=== PATIENT | male | born 1955 | race Caucasian/White ===

== ENCOUNTER 2022-10-03 16:13 | Inpatient (IN) ==
[2022-10-03 16:58] LABS: POC Calcium, Ionized 1.13 (1.16-1.32); POC Creatinine 2.8 (0.6-1.2); POC Potassium 2.3 (3.3-5.1)
[2022-10-03] MEDS ORDERED: 0.9 % SODIUM CHLORIDE 1,000 ML IV ONE (17:21)
[2022-10-03] MEDS ORDERED: morphine 4 MG/ML VIAL IV ONE (17:21)
[2022-10-03] MEDS ORDERED: ONDANSETRON 4 MG/2 ML VIAL IV ONE (17:21)
[2022-10-03 17:41] LABS: Basophils # (Auto) 0.01 K/mcL (0.00-0.30); Basophils % (Auto) 0.1 % (0.0-2.0); Eosinophils # (Auto) 0.03 K/mcL (0.00-0.70); Eosinophils % (Auto) 0.4 % (0.0-7.0); Hematocrit 34.7 % (40.1-51.0); Hemoglobin 11.4 g/dL (13.7-17.5); Lymphocytes # (Auto) 0.73 K/mcL (1.50-4.80); Lymphocytes % (Auto) 9.6 % (15.5-49.0); Mean Cell Volume 74.1 fL (80.0-100.0); Mean Corpuscular HGB Conc 32.9 g/dL (31.0-36.0); Monocytes # (Auto) 0.38 K/mcL (0.10-0.90); Neutrophils % (Auto) 84.4 % (38.0-78.0); Platelet Count 130 K/mcL (140-440); RBC 4.68 M/mcL (4.63-6.08); Red Cell Distribution Width 14.7 % (11.5-14.5); WBC 7.6 K/mcL (4.5-11.0)
[2022-10-03 17:55] LABS: ALT/SGPT 16 U/L (<40); AST/SGOT 15 U/L (<40); Albumin 3.6 gm/dL (3.2-5.2); Alkaline Phosphatase 150 U/L (39-117); Bilirubin,Direct < 0.2 mg/dL (0-0.3); Bilirubin,Total 0.5 mg/dL (0.1-1.0)
--- NOTE | 2022-10-03 19:11 | Internal Med History&Physical ---
HPI History of Present Illness Patient information: Note initiated : 10/03/22 at 7:09 pm Service Date, if different from initiated Date: [] Patient: Armen Edmonds a 67 y/o M admitted on for catheter flush. Chief Complaint: [abdominal pain, hematuria, oligouria] Chief complaint: abdominal pain, hematuria, oligouria History of present illness: Mr. Edmonds is a 67 year old M history of type 2 diabetes mellitus, CAD, BPH st atus post TURP by urologist Dr. Box a week ago on September 24, 2022, presenting with abdominal pain, hematuria, oligouria since his procedure. The abdominal/suprapubic abdominal pain was severe. He would only pee but since the procedures. Yesterday he called Dr. Box about his symptoms and was prompted to came to our ED for further evaluations. A bladder scan performed in the ED showing over 600 cc of fluid in his bladder so a Jacob catheter was inserted. Bloody urine was drained but patient had minimal urine output since then. Currently patient denies having any more abdominal pain. He denies having chest pain or palpitations. He denies any shortness of breath. He denies any muscle pain, spasm, or muscle weakness. He denies having confusion or lethargy. He denies having any GI upset such as nausea or vomiting. Labs significant for hyponatremia and hypokalemia with serum sodium and potassium level 121 and 2.3, respectively. Serum creatinine level 2.8. Blood glucose 270. Urine culture collected from October 02 day of ED presentation showing growth of Enterococcus species. Admission request is called for acute kidney injury, hyponatremia, hyperkalemia, and urinary tract infections. Constitutional Constitutional: Absent chills, excessive sweating, fatigue, fever(s) or weakness EENT Eyes: Absent blurry vision, change in vision, loss of vision or other visual disturbances Ears: Absent decreased hearing or tinnitus Nose, mouth and throat: Absent abnormal hearing, dry mouth, headache(s), nasal congestion or sore throat Cardiovascular Cardiovascular: Absent chest pain, chest pain at rest, edema, irregular heart rhythm or palpatations Respiratory Respiratory: Absent cough, dyspnea or wheezing Gastrointestinal Gastrointestinal: Present abdominal pain; Absent constipation, diarrhea, nausea or vomiting Genitourinary Genitourinary: as per HPI, difficulty urinating and hematuria Musculoskeletal Musculoskeletal: Absent back pain, deformity, limited range of motion, muscle cramps, muscle weakness or numbness Integumentary Integumentary: Absent lesions, rash or wounds Neurological Neurological: Absent focal weakness, headache(s) or numbness Psychiatric Psychiatric: Absent anxiety, depression or hallucinations PFSH PFSH All Active Problems (Updated 10/03/22 @ 19:23 by Neo Ryder MD) Hypochromic microcytic anemia (Acute) UTI (urinary tract infection) (Acute) Obstructive nephropathy (Acute) Hyponatremia (Acute) Hypokalemia (Acute) Acid reflux (Chronic) Arthritis (Chronic) Asthma (Chronic) Hypertension, essential (Chronic) Joint pain (Chronic) Osteoarthrosis, shoulder region (Chronic) Tinea cruris (Chronic) Allergic dermatitis (Chronic) Sebaceous cyst (Chronic) Edema extremities (Chronic) Gastroenteritis and colitis, viral (Chronic) Erectile dysfunction (Chronic) Nonalcoholic fatty liver disease without nonalcoholic steatohepatitis (GARBER) (Chronic) Hypertriglyceridemia (Chronic) Left elbow pain (Chronic) Swelling of left elbow (Chronic) Irritable bowel syndrome with diarrhea (Chronic) Dislocation of right shoulder joint (Chronic) Shoulder dislocation, recurrent (Chronic) Bursitis of right elbow (Chronic) Low back pain (Chronic) Pneumonia due to 2019-nCoV (Chronic) Anemia (Chronic) Hyperproteinemia (Chronic) Acute on chronic diastolic (congestive) heart failure (Chronic) Multiple myeloma (Chronic) Type 2 diabetes mellitus (Chronic) Impotence (Chronic) 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) Primary erectile dysfunction (Chronic) Allergic contact dermatitis (Chronic) Osteoarthritis (Chronic) Pain in elbow (Chronic) Swelling of upper extremity (Chronic) Edema of extremity (Chronic) Dislocation of shoulder joint (Chronic) Complete tear, knee, anterior cruciate ligament (Chronic) Rupture of anterior cruciate ligament (Chronic) Pulmonary arterial hypertension (Chronic) Coronary arteriosclerosis (Chronic) Dependence on continuous supplemental oxygen (Chronic) Syncope (Chronic) Paroxysmal supraventricular tachycardia (Chronic) Full thickness rotator cuff tear (Chronic) Unstable angina pectoris due to coronary arteriosclerosis (Chronic) Pneumonia due to COVID-19 virus (Chronic) Lower extremity edema (Chronic) Acute respiratory failure (Chronic) Hypoxia (Chronic) Rash (Acute) Leucopenia (Chronic) Neutropenia (Chronic) Epistaxis (Chronic) Hypersomnia (Acute) Snoring (Acute) Cor pulmonale, chronic (Acute) Eugene hematuria (Chronic) Acute hemorrhoid (Chronic) Urinary frequency (Chronic) Urinary urgency (Chronic) Slow urinary stream (Chronic) BPH (benign prostatic hyperplasia) (Chronic) S/P TURP (status post transurethral resection of prostate) (Acute) Bladder outflow obstruction (Acute) Medical History Acid reflux ACL injury tear Right knee ACL tear Acute bronchitis Acute hemorrhoid Acute on chronic diastolic (congestive) heart failure Acute respiratory failure Allergic contact dermatitis Allergic dermatitis Anemia Arthritis 06/08/14 Dr. Dorsey; Left 2001 Asthma continue same meds, inhalers, use asthma action plan for escalation of sx Bronchitis Burn Bursitis of right elbow Chronic combined systolic and diastolic heart failure Complete tear, knee, anterior cruciate ligament Cor pulmonale, chronic Coronary arteriosclerosis Dependence on continuous supplemental oxygen Dislocation of shoulder joint Edema of extremity Epistaxis Erectile dysfunction Fractured bone Patient stated he had too many fractures to list Eugene hematuria Full thickness rotator cuff tear Gastroenteritis and colitis, viral Hyperproteinemia Hypersomnia Hypertension, essential Hypertriglyceridemia Hypoxia Impotence Irritable bowel syndrome with diarrhea Joint pain 2008-patient has had very painful joints for the last 5 years Leucopenia Low back pain Lower extremity edema Multiple myeloma Neutropenia Nonalcoholic fatty liver disease without nonalcoholic steatohepatitis (GARBER) Osteoarthritis Osteoarthrosis, shoulder region 06/08/2014 Dr. Dorsey' localized secondary involving shoulder region, right Pain in elbow Paroxysmal supraventricular tachycardia Pneumonia due to COVID-19 virus Primary erectile dysfunction Pulmonary arterial hypertension Rash Rotator cuff rupture, complete 06/08/14 Dr. dorsey; Left 1997, Right 2000, Re-tear 2005 and underwent a pig submucosal graft repair for an irreparable rotator cuff tear Rupture of anterior cruciate ligament Sebaceous cyst Shoulder dislocation, recurrent Snoring Swelling of upper extremity Syncope Tinea cruris stop antibiotic creams, hc, use only baking soda for skin cleanser, start lamisil tabs x 6 weeks Type 2 diabetes mellitus Unstable angina pectoris due to coronary arteriosclerosis Surgical History History of biopsy (~11/22/21) myocardial History of carpal tunnel surgery of left wrist 2001- Dr. Dorsey; Left proximal row carpectomy History of decompression of median nerve History of left heart catheterization History of right heart catheterization History of surgical procedure Fracture repair- patient stated that he had too many fractures to list Hx of arthroplasty (06/08/14) Right reverse total shoulder arthroplasty done by Dr. Dorsey Hx of colonoscopy 10/2012 Hx of knee surgery Right knee surgery Hx of reconstruction of anterior cruciate ligament tear 1998 Right Hx of shoulder surgery (08/09/14) Patient had right and left shoulder surgeries. 08/09/14; [employer] reverse total shoulder glenosphere revision, 4mm offset x 42 mm glenosphere, exchange of one purple screw for an orange screw in the superior hole of the baseplate, 42 mm x 0 mm humeral bearing- Done by Dr. Dorsey Family History mother Essential hypertension Melanoma Sister Asthma Social History marital status: occupational status: retired physical activity: none smoking status: Never smoker alcohol intake frequency: a few times a week substance use type: does not use fire extinguisher in home: Yes carbon monox detector in home: Yes MEDS/ALLERGIES Home Medications and Allergies Home Medications Medication Instructions Recorded Confirmed Type acyclovir 400 mg tablet 400 mg PO BID 08/13/22 09/30/22 History ambrisentan 10 mg tablet 10 mg PO QDAY 08/13/22 09/30/22 History dexamethasone 4 mg tablet 20 mg PO .Q Month 08/13/22 09/30/22 History dicyclomine 10 mg capsule 10 mg PO TID PRN Pain 08/13/22 09/30/22 History empagliflozin 10 mg tablet 10 mg PO QDAY 08/13/22 09/30/22 History (Jardiance) furosemide 40 mg tablet 40 mg PO BID 08/13/22 09/30/22 History oxybutynin chloride 10 mg 10 mg PO QDAY 08/13/22 09/30/22 History tablet,extended release 24 hr sildenafil (pulm.hypertension) 20 20 mg PO TID 08/13/22 09/30/22 History mg tablet hydrocodone 7.5 mg-acetaminophen 2 tab PO DAILY pain 09/18/22 09/30/22 History 325 mg tablet potassium chloride 20 mEq 20 meq PO QDAY 09/18/22 09/30/22 History tablet,extended release tramadol 50 mg tablet 50 mg PO Q8H PRN pain #10 tabs 09/25/22 09/30/22 Rx Allergies Allergy/AdvReac Type Severity Reaction Status Date / Time promethazine [From PHENERGAN] Allergy Unknown PSYCHOTIC Verified 10/03/22 16:19 EPISODE EXAM Constitutional Vitals: Temp Pulse Resp BP Pulse Ox O2 Del Method 36.4 C 74 16 120/63 95 Room Air 10/03/22 16:15 10/03/22 18:28 10/03/22 16:15 10/03/22 18:28 10/03/22 18:28 10/03/22 16:15 General appearance: cooperative and no acute distress Head Head exam: Present atraumatic and normocephalic Eye Eye exam: Present EOMI and PERRL ENT ENT exam: Present mucous membranes moist, normal exam and normal external ear exam Neck Neck exam: Present normal inspection; Absent lymphadenopathy, tenderness or thyromegaly Respiratory Respiratory exam: Absent accessory muscle use, respiratory distress or wheezes Cardiovascular Cardiovascular exam: Present normal rate and rhythm; Absent JVD GI/Abdominal GI/Abdominal exam: Present normal bowel sounds and soft; Absent organomegaly or tenderness Rectal Rectal exam: Present deferred Additional comments: Jacob catheter in place with bloody urine in the bag Extremities Exam Extremities exam: Present full ROM, normal capillary refill and normal inspection; Absent tenderness Back Exam Back exam: Absent CVA tenderness (L), CVA tenderness (R), paraspinal tenderness or vertebral tenderness Neurological Exam Neurological exam: Present alert, CN II-XII intact and oriented X3; Absent motor sensory deficit Psychiatric Psychiatric exam: Present normal affect and normal mood; Absent anxious or depressed Skin Skin exam: Present dry and intact DATA Data Completed and Pending Labs: Labs from last 24 hours 10/03/22 10/03/22 10/03/22 17:00 17:00 16:49 WBC 7.6 RBC 4.68 Hgb 11.4 L Hct 34.7 L POC Hct 36.0 L MCV 74.1 L MCH 24.4 L MCHC 32.9 RDW 14.7 H Plt Count 130 L MPV ---- Immature Gran % (Auto) 0.5 Neut % (Auto) 84.4 H Lymph % (Auto) 9.6 L [place] % (Auto) 5.0 Eos % (Auto) 0.4 Baso % (Auto) 0.1 Lymph # (Auto) 0.73 L [place] # (Auto) 0.38 Eos # (Auto) 0.03 Baso # (Auto) 0.01 Immature Gran # 0.04 Absolute Neutrophils 6.40 POC Sodium 121 L POC Potassium 2.3 L* POC Chloride 78 L POC Total CO2 31.0 H POC BUN 69 H POC Creatinine 2.8 H POC Glucose 270 H POC WB Ioniz Calcium 1.13 L Total Bilirubin 0.5 Direct Bilirubin < 0.2 AST 15 ALT 16 Alkaline Phosphatase 150 H Total Protein 6.6 Albumin 3.6 Globulin 3.0 A/P Assessment and plan (1) Type 2 diabetes mellitus: Status: Chronic (2) BPH (benign prostatic hyperplasia): Status: Chronic (3) S/P TURP (status post transurethral resection of prostate): Status: Acute (4) Hypokalemia: Status: Acute (5) Hyponatremia: Status: Acute (6) Obstructive nephropathy: Status: Acute (7) UTI (urinary tract infection): Status: Acute (8) Hypochromic microcytic anemia: Status: Acute Narrative A/P Narrative: Assessment and Plans: 1. Acute kidney injury secondary to obstructive nephropathy: Inpatient med surg Keep Jacob catheter in place CT abdomen pelvis w/o Avoid nephrotoxic agents s/p IV fluid bolus given in the ED, to be followed by NS@75cc/hr CMP in the morning to trend kidney functions; if kidney functions does not improve with hydration and resolution of the urinary obstruction, will consult nephrology for potential hemodialysis 2. Hyponatremia: s/p IV fluid bolus given in the ED, to be followed by NS@75cc/hr BMP q6hr to trend serum sodium level Goal of correction 8-10 point over the first 24 hours to avoid overcorrection and associated GRADES 1 THROUGH 6 TEACHER consequences such as Central Pontine Myelinolysis 3. Hypokalemia: K rider 20mEq IV once now, then KCL 20mEq PO BID BMP q6hr to trend serum potassium level Also check serum Mg level and replace if needed 4. T2DM: HgA1c Hold Metformin or any other oral hypoglycemics Insulin Lispro SSI AC HS Accu Check AC HS Hypoglycemia protocol Diabetic diet 5. h/o BPH s/p TURP: See #1 6. Urinary tract infection: Serial lactic acid Procalcitonin level Blood culture Urine culture: enterococcus spc. cbc w/ auto diff in the morning to trend WBC s/p IV fluid bolus given in the ED, to be followed by NS@75cc/hr Rocephin GI ppx: not currently indicated DVT ppx: SCDs Code status: Full Prognosis: guarded Disposition: inpatient med surg tele Time Spent With Patient Time: Total time spent is greater than 50% in coordination of care (as documented) at patient's floor/unit and/or counseling patient: Initial: Total time with patient: 55 - 74 minutes
--- NOTE | 2022-10-03 19:55 | Emergency Department Note ---
Male Urogenital HPI General Chief complaint: Urogenital-Male Stated complaint: catheter flush Time Seen by Provider: 10/03/22 16:24 Source: patient Mode of arrival: EMS Limitations: no limitations History of Present Illness HPI Narrative: Narrative: This is a pleasant 67-year-old male who presents emergency department with complaints of unable to urinate. He had a having a TURP done by Dr. Box and ended up not being able to urinate came back to the emergency department last night had about 600 cc of urine in his bladder after it being irrigated the Jacob catheter was placed. The patient reports that he has not had much any urine going to the bag since last night at midnight. He reports he has having p ain of the urethra of his penis but is not having any abdominal pain but just a distention and uncomfortableness. He has not been having any fevers or chills nausea or vomiting chest pain shortness of breath diarrhea. He reports that he drinks plenty of water a day and drinks at least 64 ounces of water daily. He is concerned since he has not able to urinate. Related Data Home Medications Medication Instructions Recorded Confirmed acyclovir 400 mg tablet 400 mg PO BID 08/13/22 09/30/22 ambrisentan 10 mg tablet 10 mg PO QDAY 08/13/22 09/30/22 dexamethasone 4 mg tablet 20 mg PO .Q Month 08/13/22 09/30/22 dicyclomine 10 mg capsule 10 mg PO TID PRN Pain 08/13/22 09/30/22 empagliflozin 10 mg tablet 10 mg PO QDAY 08/13/22 09/30/22 (Jardiance) furosemide 40 mg tablet 40 mg PO BID 08/13/22 09/30/22 oxybutynin chloride 10 mg 10 mg PO QDAY 08/13/22 09/30/22 tablet,extended release 24 hr sildenafil (pulm.hypertension) 20 20 mg PO TID 08/13/22 09/30/22 mg tablet hydrocodone 7.5 mg-acetaminophen 2 tab PO DAILY pain 09/18/22 09/30/22 325 mg tablet potassium chloride 20 mEq 20 meq PO QDAY 09/18/22 09/30/22 tablet,extended release Previous Rx's Medication Instructions Recorded tramadol 50 mg tablet 50 mg PO Q8H PRN pain #10 tabs 09/25/22 Allergies Allergy/AdvReac Type Severity Reaction Status Date / Time promethazine [From PHENERGAN] Allergy Unknown PSYCHOTIC Verified 10/03/22 16:19 EPISODE Review of Systems ROS ROS Narrative: Narrative: All systems ED: reviewed and negative except as stated. [facility] Narrative Patient History Narrative: Narrative: Medical/Surgical/Family History All Active Problems (Updated 10/03/22 @ 22:13 by Rl De Anda PA-C) AFSHIN (acute kidney injury) (Acute) Hypochromic microcytic anemia (Acute) UTI (urinary tract infection) (Acute) Obstructive nephropathy (Acute) Hyponatremia (Acute) Hypokalemia (Acute) Acid reflux (Chronic) Arthritis (Chronic) Asthma (Chronic) Hypertension, essential (Chronic) Joint pain (Chronic) Osteoarthrosis, shoulder region (Chronic) Tinea cruris (Chronic) Allergic dermatitis (Chronic) Sebaceous cyst (Chronic) Edema extremities (Chronic) Gastroenteritis and colitis, viral (Chronic) Erectile dysfunction (Chronic) Nonalcoholic fatty liver disease without nonalcoholic steatohepatitis (GARBER) (Chronic) Hypertriglyceridemia (Chronic) Left elbow pain (Chronic) Swelling of left elbow (Chronic) Irritable bowel syndrome with diarrhea (Chronic) Dislocation of right shoulder joint (Chronic) Shoulder dislocation, recurrent (Chronic) Bursitis of right elbow (Chronic) Low back pain (Chronic) Pneumonia due to 2019-nCoV (Chronic) Anemia (Chronic) Hyperproteinemia (Chronic) Acute on chronic diastolic (congestive) heart failure (Chronic) Multiple myeloma (Chronic) Type 2 diabetes mellitus (Chronic) Impotence (Chronic) 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) Primary erectile dysfunction (Chronic) Allergic contact dermatitis (Chronic) Osteoarthritis (Chronic) Pain in elbow (Chronic) Swelling of upper extremity (Chronic) Edema of extremity (Chronic) Dislocation of shoulder joint (Chronic) Complete tear, knee, anterior cruciate ligament (Chronic) Rupture of anterior cruciate ligament (Chronic) Pulmonary arterial hypertension (Chronic) Coronary arteriosclerosis (Chronic) Dependence on continuous supplemental oxygen (Chronic) Syncope (Chronic) Paroxysmal supraventricular tachycardia (Chronic) Full thickness rotator cuff tear (Chronic) Unstable angina pectoris due to coronary arteriosclerosis (Chronic) Pneumonia due to COVID-19 virus (Chronic) Lower extremity edema (Chronic) Acute respiratory failure (Chronic) Hypoxia (Chronic) Rash (Acute) Leucopenia (Chronic) Neutropenia (Chronic) Epistaxis (Chronic) Hypersomnia (Acute) Snoring (Acute) Cor pulmonale, chronic (Acute) Eugene hematuria (Chronic) Acute hemorrhoid (Chronic) Urinary frequency (Chronic) Urinary urgency (Chronic) Slow urinary stream (Chronic) BPH (benign prostatic hyperplasia) (Chronic) S/P TURP (status post transurethral resection of prostate) (Acute) Bladder outflow obstruction (Acute) Medical History Acid reflux ACL injury tear Right knee ACL tear Acute bronchitis Acute hemorrhoid Acute on chronic diastolic (congestive) heart failure Acute respiratory failure Allergic contact dermatitis Allergic dermatitis Anemia Arthritis 06/08/14 Dr. Dorsey; Left 2001 Asthma continue same meds, inhalers, use asthma action plan for escalation of sx Bronchitis Burn Bursitis of right elbow Chronic combined systolic and diastolic heart failure Complete tear, knee, anterior cruciate ligament Cor pulmonale, chronic Coronary arteriosclerosis Dependence on continuous supplemental oxygen Dislocation of shoulder joint Edema of extremity Epistaxis Erectile dysfunction Fractured bone Patient stated he had too many fractures to list Eugene hematuria Full thickness rotator cuff tear Gastroenteritis and colitis, viral Hyperproteinemia Hypersomnia Hypertension, essential Hypertriglyceridemia Hypoxia Impotence Irritable bowel syndrome with diarrhea Joint pain 2008-patient has had very painful joints for the last 5 years Leucopenia Low back pain Lower extremity edema Multiple myeloma Neutropenia Nonalcoholic fatty liver disease without nonalcoholic steatohepatitis (GARBER) Osteoarthritis Osteoarthrosis, shoulder region 06/08/2014 Dr. Dorsey' localized secondary involving shoulder region, right Pain in elbow Paroxysmal supraventricular tachycardia Pneumonia due to COVID-19 virus Primary erectile dysfunction Pulmonary arterial hypertension Rash Rotator cuff rupture, complete 06/08/14 Dr. dorsey; Left 1997, Right 2000, Re-tear 2005 and underwent a pig submucosal graft repair for an irreparable rotator cuff tear Rupture of anterior cruciate ligament Sebaceous cyst Shoulder dislocation, recurrent Snoring Swelling of upper extremity Syncope Tinea cruris stop antibiotic creams, hc, use only baking soda for skin cleanser, start lamisil tabs x 6 weeks Type 2 diabetes mellitus Unstable angina pectoris due to coronary arteriosclerosis Surgical History History of biopsy (~11/22/21) myocardial History of carpal tunnel surgery of left wrist 2001- Dr. Dorsey; Left proximal row carpectomy History of decompression of median nerve History of left heart catheterization History of right heart catheterization History of surgical procedure Fracture repair- patient stated that he had too many fractures to list Hx of arthroplasty (06/08/14) Right reverse total shoulder arthroplasty done by Dr. Dorsey Hx of colonoscopy 10/2012 Hx of knee surgery Right knee surgery Hx of reconstruction of anterior cruciate ligament tear 1998 Right Hx of shoulder surgery (08/09/14) Patient had right and left shoulder surgeries. 08/09/14; [employer] reverse total shoulder glenosphere revision, 4mm offset x 42 mm glenosphere, exchange of one purple screw for an orange screw in the superior hole of the baseplate, 42 mm x 0 mm humeral bearing- Done by Dr. Dorsey Family History mother Essential hypertension Melanoma Sister Asthma Social History Smoking Status: Never smoker Alcohol Intake Frequency: a few times a week Substance Use: does not use Exam Narrative Narrative: Narrative: General: Alert, in no acute distress Head: No trauma normocephalic Eyes: PERRLA, EOMs intact no scleral icterus or scleral injection Neck: Full range of motion, no midline tenderness ENT: Moist mucous membranes, uvula is midline. No sign of peritonsillar abscess or Brandyn's angina. Cardiovascular: Regular rate and rhythm no murmur Respiratory: Clear to auscultation bilaterally. No rhonchi rales or wheezes, no respiratory distress Abdomen pelvis: Abdomen is soft and nontender to palpation. There is no guarding no rebound tenderness. Negative Pierre sign. No tenderness over McBurney's point. : The genitals are unremarkable. There is no abnormality of the penis on external exam. Back: Negative CVA tenderness bilaterally. Neuro: Patient is alert and oriented x3 Psych: Normal affect, normal mood Skin: Warm, no rash, normal color General Limitations: no limitations Course Vital Signs Vital signs: Vital Signs Temperature 97.5 F 10/03/22 16:15 Pulse Rate 65 10/03/22 16:15 Respiratory Rate 16 10/03/22 16:15 Blood Pressure 112/63 10/03/22 16:15 Pulse Oximetry (%) 96 10/03/22 16:15 Oxygen Delivery Method Room Air 10/03/22 16:15 Temperature 97.5 F 10/03/22 16:15 Pulse Rate 74 10/03/22 19:14 Respiratory Rate 16 10/03/22 16:15 Blood Pressure 120/67 10/03/22 19:14 Pulse Oximetry (%) 92 10/03/22 19:14 Oxygen Delivery Method Room Air 10/03/22 16:15 MDM MDM Narrative Medical decision making narrative: Narrative: Differential diagnosis: Acute kidney injury, bladder outlet obstruction secondary to clot burden Independent lab ordered and reviewed by me: Patient's labs are reviewed. He does appear to have an AFSHIN. There is only about 120 cc of urine within the bladder. I have ordered 2 L of normal saline. I spoke with Pui who agreed to admit the patient for further evaluation and treatment for his AFSHIN. Lab Data 10/03/22 17:00 Labs: Lab Results 10/03/22 10/03/22 10/03/22 Range/Units 16:49 17:00 17:00 WBC 7.6 (4.5-11.0) K/mcL RBC 4.68 (4.63-6.08) M/mcL Hgb 11.4 L (13.7-17.5) g/dL Hct 34.7 L (40.1-51.0) % POC Hct 36.0 L (41-55) MCV 74.1 L (80.0-100.0) fL MCH 24.4 L (26.0-34.0) pg MCHC 32.9 (31.0-36.0) g/dL RDW 14.7 H (11.5-14.5) % Plt Count 130 L (140-440) K/mcL MPV ---- (8.8-12.5) fL Immature Gran % (Auto) 0.5 (0.0-0.5) % Neut % (Auto) 84.4 H (38.0-78.0) % Lymph % (Auto) 9.6 L (15.5-49.0) % [place] % (Auto) 5.0 (1.0-12.0) % Eos % (Auto) 0.4 (0.0-7.0) % Baso % (Auto) 0.1 (0.0-2.0) % Lymph # (Auto) 0.73 L (1.50-4.80) K/mcL [place] # (Auto) 0.38 (0.10-0.90) K/mcL Eos # (Auto) 0.03 (0.00-0.70) K/mcL Baso # (Auto) 0.01 (0.00-0.30) K/mcL Immature Gran # 0.04 (0.00-0.05) K/mcl Absolute Neutrophils 6.40 (1.80-8.00) K/mcL POC Sodium 121 L (133-145) POC Potassium 2.3 L* (3.3-5.1) POC Chloride 78 L (96-108) POC Total CO2 31.0 H (22-30) POC BUN 69 H (6-20) POC Creatinine 2.8 H (0.6-1.2) POC Glucose 270 H (70-105) POC WB Ioniz Calcium 1.13 L (1.16-1.32) Total Bilirubin 0.5 (0.1-1.0) mg/dL Direct Bilirubin < 0.2 (0-0.3) mg/dL AST 15 (<40) U/L ALT 16 (<40) U/L Alkaline Phosphatase 150 H (39-117) U/L Total Protein 6.6 (5.9-8.4) gm/dL Albumin 3.6 (3.2-5.2) gm/dL Globulin 3.0 (2.2-3.7) gm/dL Discharge Plan Patient/Caregiver Discharge Instructions Pt seen by HOUSEPERSON/PA only: Yes Clinical Impression: AFSHIN (acute kidney injury) Activity: increase activity as tolerated Instructions: Acute Kidney Injury (DC) Patient Disposition: Xfer As Inpt ([facility]) Follow up with: Richie Cunningham MD [Primary Care Provider] - Prescriptions: No Action hydrocodone-acetaminophen 7.5-325 mg tablet 2 tab PO DAILY potassium chloride 20 mEq tablet extended release 20 meq PO QDAY Rx Instructions: ONLY TAKES 20 MEQ tramadol 50 mg tablet 50 mg PO Q8H PRN (Reason: pain) Qty: 10 0RF furosemide 40 mg tablet 40 mg PO BID dicyclomine 10 mg capsule 10 mg PO TID PRN (Reason: Pain) sildenafil (pulm.hypertension) 20 mg tablet 20 mg PO TID acyclovir 400 mg tablet 400 mg PO BID ambrisentan 10 mg tablet 10 mg PO QDAY Jardiance 10 mg tablet 10 mg PO QDAY oxybutynin chloride 10 mg tablet extended release 24hr 10 mg PO QDAY dexamethasone 4 mg tablet 20 mg PO .Q Month Rx Instructions: ONLY TAKES WHEN HE TAKES HIS CANCER TREATMENT
[2022-10-03 21:44] LABS: Appearance,Urine CLEAR (Clear); Bilirubin,Urine NEGATIVE (Negative); Color,Urine LT. RED; Culture Indicated,Urine yes; Glucose,Urine (UA) 250 mg/dL (Negative); Ketones,Urine NEGATIVE (Negative); Leukocyte Esterase,Urine TRACE /uL (Negative); Nitrate,Urine NEGATIVE (Negative); Protein,Urine 100 mg/dL (Negative); Urine Blood LARGE ery/mcL (Negative); Urine RBC > 182 /hpf (0-1); Urine Squamous Epithelial Cell 0 /hpf (0-4); Urine WBC 12 /hpf (0-4); Urobilinogen,Urine Normal
[2022-10-03] MEDS ORDERED: ONDANSETRON 4 MG/2 ML VIAL IV PRN (22:55)
[2022-10-03] MEDS ORDERED: POTASSIUM CHLORIDE 20 MEQ in DEXTROSE 5% IN WATER 250 ML IV ONE (22:55)
[2022-10-03] MEDS ORDERED: DEXTROSE 31 GM ORAL.SUSP PO PRN (22:55)
[2022-10-03] MEDS ORDERED: ACETAMINOPHEN 325 MG TABLET PO PRN (22:55)
[2022-10-03] MEDS ORDERED: IPRATROPIUM/ALBUTEROL 3 ML AMPUL.NEB NEB PRN (22:55)
[2022-10-03] MEDS ORDERED: cefTRIAXone 1 GM in DEXTROSE 5% IN WATER 50 ML IV SCH (22:55)
[2022-10-03] MEDS ORDERED: traZODone HCL 50 MG TABLET PO PRN (22:55)
[2022-10-03] MEDS ORDERED: DEXTROSE 50% 50 ML VIAL IV PRN (22:55)
[2022-10-03] MEDS: INSULIN LISPRO 1 UNIT/0.01 ML UNIT SQ SCH (23:00)
[2022-10-03] MEDS: 0.9 % SODIUM CHLORIDE 1,000 ML IV SCH (23:00)
[2022-10-03] MEDS ORDERED: INSULIN LISPRO 1 UNIT/0.01 ML UNIT SQ ONE (23:24)
[2022-10-03] MEDS ORDERED: POTASSIUM CHLORIDE 20 MEQ/10 ML VIAL IV ONE (23:52)
[2022-10-03] MEDS ORDERED: ceFAZolin 1 GM VIAL ONE (23:52)
[2022-10-04] MEDS ORDERED: ACETAMINOPHEN 325 MG TABLET PO ONE
[2022-10-04] MEDS: 0.9 % SODIUM CHLORIDE 10 ML SYRINGE IV SCH ×4 (04:14→23:45)
[2022-10-04] MEDS: DOCUSATE SODIUM 100 MG CAPSULE PO SCH ×3 (04:14→21:12)
[2022-10-04] MEDS: SENNOSIDES 1 TABLET PO SCH ×2 (04:14→21:12)
[2022-10-04 04:16] LABS: Basophils # (Auto) 0.01 K/mcL (0.00-0.30); Basophils % (Auto) 0.2 % (0.0-2.0); Eosinophils # (Auto) 0.12 K/mcL (0.00-0.70); Eosinophils % (Auto) 2.6 % (0.0-7.0); Hematocrit 31.6 % (40.1-51.0); Hemoglobin 10.3 g/dL (13.7-17.5); Lymphocytes # (Auto) 0.85 K/mcL (1.50-4.80); Lymphocytes % (Auto) 18.3 % (15.5-49.0); Mean Cell Volume 75.6 fL (80.0-100.0); Mean Corpuscular HGB Conc 32.6 g/dL (31.0-36.0); Monocytes # (Auto) 0.33 K/mcL (0.10-0.90); Monocytes % (Auto) 7.1 % (1.0-12.0); Neutrophils % (Auto) 71.4 % (38.0-78.0); Platelet Count 108 K/mcL (140-440); RBC 4.18 M/mcL (4.63-6.08); Red Cell Distribution Width 14.7 % (11.5-14.5); WBC 4.6 K/mcL (4.5-11.0)
[2022-10-04 04:48] LABS: ALT/SGPT 13 U/L (<40); AST/SGOT 13 U/L (<40); Albumin 3.5 gm/dL (3.2-5.2); Albumin/Globulin Ratio 1.3 (1.0-2.3); Alkaline Phosphatase 113 U/L (39-117); Bilirubin,Total 0.3 mg/dL (0.1-1.0); Blood Urea Nitrogen 66 mg/dL (8-23); Carbon Dioxide 34 mmol/L (22-30); Chloride 83 mmol/L (96-108); Globulin 2.6 gm/dL (2.2-3.7); Glomerular Filtration Rate 38; Glucose 166 mg/dL (70-105)
[2022-10-04 05:30] LABS: Estimated Average Glucose(eAG) 154 mg/dL
[2022-10-04] MEDS: morphine 4 MG/ML VIAL IV PRN ×4 (07:27→23:34)
--- NOTE | 2022-10-04 07:48 | Cat Scan Report ---
Three: Acute kidney injury, urinary retention, blood clots in the Jacob catheter TECHNIQUE: Abdomen was imaged without contrast in axial plane at 2.5 mm intervals from above the diaphragm through the symphysis pubis. Sagittal and coronal reformats were created. The radiation exposure was limited using dose reduction technology. FINDINGS: Thin linear opacities are present in both lung bases which may be scar or discoid atelectasis. These are new since 10/26/10. Evaluation of the abdominal organs without contrast is somewhat limited. The liver is normal in size. There is subtle lobulation of the capsule anteriorly. No mass is detected in the liver. There are few small varices anterior to the stomach and liver. Spleen is borderline enlarged and homogeneous. The gallbladder and bile ducts are normal. There is no mass or inflammation in the pancreas. The adrenals are normal and symmetric. There is a complex exophytic cyst located medially in the upper pole of the right kidney. It measures 2.5 x 2.5 cm. It has higher attenuation than water. There are calcifications along the medial border. This has not enlarged since prior CT on 10/26/10 but the calcifications were not present at that time. This had been worked up with an MRI on 03/08/21 and it has not changed. 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 No other lesion is seen in the right kidney. There is a simple cyst medially in the lower pole of the left kidney which measures 1.6 x 1.6 cm. No kidney stone or hydronephrosis are present. The renal cortex is normal in thickness bilaterally. The ureters are decompressed. There is a Jacob catheter in the bladder. The bladder is nearly completely filled with homogeneous clot. There is also some air within the lumen which is related to the catheter insertion. The wall of the bladder is normal thickness and smooth. Prostate and seminal vesicles are normal. Bowel pattern is normal without evidence of inflammation or obstruction. The appendix is normal. No adenopathy or ascites are present. There is mild compression fracture involving the superior endplate of L2. There is an intramedullary lesion in the body of L2 which has mixed density. It has a peripheral sclerotic border and a mottled low attenuation central component. This was not present on 10/26/10. A smaller similar-appearing lesion is present anteriorly at T10 and there is mild depression of the superior endplate of T10. These have evolved since 03/08/21. IMPRESSION: Large amount of clot in the urinary bladder. Underlying tumor cannot be entirely excluded. Stable complex cyst along the medial side of the upper pole the right kidney. Mild collapse of the T10 and L2 vertebra with intramedullary lesions. Intramedullary lesions are nonspecific. There are some components which suggests these may be hemangiomas. However, there was no evidence of a hemangioma in 2010. Metastasis should also be considered. Mild cirrhosis Interpreted and Authenticated by: Hector Pedraza 10/04/22
[2022-10-04] MEDS: INSULIN LISPRO 1 UNIT/0.01 ML UNIT SQ SCH ×4 (07:49→21:14)
[2022-10-04] MEDS: POTASSIUM CHLORIDE 20 MEQ TABLET PO SCH ×2 (08:05→17:33)
--- NOTE | 2022-10-04 08:16 | XRay Report ---
HISTORY: Abdominal swelling, blood in the bladder, Jacob catheter flushed FINDINGS: The Jacob catheter has been removed. The bladder is small. There are couple loops of nonspecific small bowel in the left mid abdomen. The larger measures 2.8 cm in transverse dimension which is within normal limits and the mucosal pattern is normal. Superior to this there is a second loop of small bowel which is smaller in caliber but appears to have thickened mucosal folds. These findings were not seen on yesterday's CT scan. Normal quantity of air and stool is present in the large intestine. Stomach contains a normal amount of gas. IMPRESSION: Nonspecific bowel pattern in the left mid abdomen. There is a suggestion of focal inflammation of the small intestine Interpreted and Authenticated by: Hector Pedraza 10/04/22
[2022-10-04 08:24] LABS: Appearance,Urine HAZY (Clear); Bilirubin,Urine Negative (Negative); Color,Urine RED; Culture Indicated,Urine yes; Glucose,Urine (UA) 50 mg/dL (Negative); Ketones,Urine Negative (Negative); Leukocyte Esterase,Urine 75 /uL (Negative); Nitrate,Urine Negative (Negative); Protein,Urine 100 mg/dL (Negative); Specific Gravity,Urine 1.011 (1.000-1.035); Urine RBC > 182 /hpf (0-1); Urine Squamous Epithelial Cell 0 /hpf (0-4); Urine Transitional Epi Cells 1 /hpf (0-2); Urine WBC 73 /hpf (0-4); Urobilinogen,Urine Negative
[2022-10-04 08:30] LABS: ALT/SGPT 14 U/L (<40); AST/SGOT 13 U/L (<40); Albumin 3.5 gm/dL (3.2-5.2); Albumin/Globulin Ratio 1.3 (1.0-2.3); Alkaline Phosphatase 109 U/L (39-117); Bilirubin,Total 0.3 mg/dL (0.1-1.0); Blood Urea Nitrogen 63 mg/dL (8-23); Carbon Dioxide 33 mmol/L (22-30); Chloride 84 mmol/L (96-108); Globulin 2.6 gm/dL (2.2-3.7); Glomerular Filtration Rate 44; Glucose 120 mg/dL (70-105)
[2022-10-04] MEDS: cefTRIAXone 1 GM VIAL IV SCH (08:53)
[2022-10-04] MEDS ORDERED: POTASSIUM CHLORIDE 40 MEQ in DEXTROSE 5% IN WATER 500 ML IV ONE (09:04)
[2022-10-04] MEDS ORDERED: DICYCLOMINE 20 MG TABLET PO PRN (11:57)
[2022-10-04] MEDS ORDERED: DEXAMETHASONE 4 MG TABLET PO SCH (12:00)
--- NOTE | 2022-10-04 12:09 | Internal Med Progress Note ---
SUBJECTIVE Subjective Patient information: Note initiated : 10/04/22 at 12:03 pm Service Date, if different from initiated Date: [] Patient: Armen Edmonds a 67 y/o M admitted on 10/03/22 for catheter flush. Chief Complaint: [] Interval history: Mr. Edmonds is a 67 year old M history of type 2 diabetes mellitus, CAD, BPH status post TURP by urologist Dr. Box a week ago on September 24, 2022, presenting with abdominal pain, hematuria, oligouria since his procedure. The abdominal/suprapubic abdominal pain was severe. He would only pee but since the procedures. Yesterday he called Dr. Box about his symptoms and was prompted to came to our ED for further evaluations. A bladder scan performed in the ED showing over 600 cc of fluid in his bladder so a Jacob catheter was inserted. Bloody urine was drained but patient had minimal urine output since then. Currently patient denies having any more abdominal pain. He denies having chest pain or palpitations. He denies any shortness of breath. He denies any muscle pain, spasm, or muscle weakness. He denies having confusion or lethargy. He denies having any GI upset such as nausea or vomiting. Labs significant for hyponatremia and hypokalemia with serum sodium and potassium level 121 and 2.3, respectively. Serum creatinine level 2.8. Blood glucose 270. Urine culture collected from October 02 day of ED presentation showing growth of Enterococcus species. Admission request is called for acute kidney injury, hyponatremia, hyperkalemia, and urinary tract infections. 10/04: Patient had 500 cc bloody urine output overnight in and and out of 400 cc bloody urine output approximately 3 hour since the start of the morning shift. Serum sodium improved from 1 21-1 27 while serum potassium deteriorated from 2.3-1.9. Serum creatinine level went down from 2.8-1.6. Urine culture grew Enterococcus species, blood culture no growth to date. CT of the abdomen pelvis showing clots in the bladder, likely blood clots. Patient is feeling good and denies any abdominal pain. K rider 40 M EQ IV once, in addition to p.o. potassium supplement. Continue IV fluid with normal saline at 75 cc/h. BMP every 6. We will keep the Jacob catheter in place for the time being. We will continue Rocephin for Enterococcus urinary tract infections. Constitutional Vitals: Vital Signs Temp Pulse Resp BP Pulse Ox O2 Del Method O2 Flow Rate 36.6 C 68 14 117/66 96 Room Air 2 10/04/22 08:00 10/04/22 08:00 10/04/22 08:00 10/04/22 08:00 10/04/22 08:00 10/04/22 08:00 10/04/22 04:00 Period Temp Pulse Resp BP Sys/Kaur Pulse Ox O2 Del Method O2 Flow Rate Last 24 Hr 36.4 C-36.9 C 30-88 10- 80-141/45-70 87-96 Nasal Cannula-Jesika m Air 2 Intake and Output 10/04/22 10/04/22 10/04/22 03:59 11:59 19:59 Intake Total 550 Output Total 3150 Balance -2600 Weight 74.389 kg Intake & Output: Intake & Output 10/04/22 10/04/22 10/04/22 03:59 11:59 19:59 Intake Total 550 Output Total 3150 Balance -2600 Weight 74.389 kg Intake: IV 310 Potassium Chloride 20 Meq In 260 Dextrose 5% in Water 250 ml @ 130 mls/hr IV ONCE ONE Rx#: [id number] Rocephin 1 gm In Dextrose 5% in 50 Water 50 ml @ 100 mls/hr IV Q24H [facility] Rx#:[id number] Oral 240 Output: Urine Catheter Amount 3150 Other: Meal Breakfast Percent of Meal Consumed 100% Feeding Ability Independent Urine Appearance Hematuria Hematuria 3-way Urethral Hematuria Hematuria Urine Color Dark Red Dark Amanda Medium [place] 3-way Urethral Dark Red Dark Yellow Medium [place] Urine Odor Normal Normal 3-way Urethral Normal Normal Head Head exam: Present atraumatic and normal inspection Eye Eye exam: Present normal appearance ENT ENT exam: Present mucous membranes moist, normal exam and normal external ear exam Neck Neck exam: Present normal inspection Respiratory Respiratory exam: Present normal respiratory exam Cardiovascular Cardiovascular exam: Present normal rate and rhythm GI/Abdominal GI/Abdominal exam: Present normal bowel sounds Additional comments: Jacob catheter in place with bloody urine in the bag Back Exam Back exam: Present normal inspection Neurological Exam Neurological exam: Present alert and oriented X3 Skin Skin exam: Present intact and warm OBJ DATA Labs 10/04/22 03:18 10/04/22 06:01 Labs: Abnormal Lab Results 10/04/22 10/04/22 10/04/22 07:45 06:01 03:18 RBC Hgb Hct POC Hct MCV MCH RDW Plt Count Neut % (Auto) Lymph % (Auto) Lymph # (Auto) VBG Lactic Acid POC Sodium Sodium 127 L 126 L POC Potassium Potassium 1.9 L* 2.3 L* POC Chloride Chloride 84 L 83 L Carbon Dioxide 33 H 34 H POC Total CO2 POC BUN BUN 63 H 66 H Creatinine 1.6 H 1.8 H POC Creatinine Glucose 120 H 166 H POC Glucose Hemoglobin A1c 7.0 H POC WB Ioniz Calcium Alkaline Phosphatase Procalcitonin Urine Appearance Hazy A Urine Protein 100 A Urine Glucose (UA) 50 A Urine Occult Blood Ur Leukocyte Esterase 75 A Urine RBC > 182 H Urine WBC 73 H 10/04/22 10/03/22 10/03/22 03:18 23:45 19:46 RBC 4.18 L Hgb 10.3 L Hct 31.6 L POC Hct MCV 75.6 L MCH 24.6 L RDW 14.7 H Plt Count 108 L Neut % (Auto) Lymph % (Auto) Lymph # (Auto) 0.85 L VBG Lactic Acid 2.1 H POC Sodium Sodium POC Potassium Potassium POC Chloride Chloride Carbon Dioxide POC Total CO2 POC BUN BUN Creatinine POC Creatinine Glucose POC Glucose Hemoglobin A1c POC WB Ioniz Calcium Alkaline Phosphatase Procalcitonin 78.33 H Urine Appearance Urine Protein Urine Glucose (UA) Urine Occult Blood Ur Leukocyte Esterase Urine RBC Urine WBC 10/03/22 10/03/22 10/03/22 19:46 17:00 17:00 RBC Hgb 11.4 L Hct 34.7 L POC Hct MCV 74.1 L MCH 24.4 L RDW 14.7 H Plt Count 130 L Neut % (Auto) 84.4 H Lymph % (Auto) 9.6 L Lymph # (Auto) 0.73 L VBG Lactic Acid POC Sodium Sodium POC Potassium Potassium POC Chloride Chloride Carbon Dioxide POC Total CO2 POC BUN BUN Creatinine POC Creatinine Glucose POC Glucose Hemoglobin A1c POC WB Ioniz Calcium Alkaline Phosphatase 150 H Procalcitonin Urine Appearance Urine Protein 100 A Urine Glucose (UA) 250 A Urine Occult Blood Large A Ur Leukocyte Esterase Trace A Urine RBC > 182 H Urine WBC 12 H 10/03/22 16:49 RBC Hgb Hct POC Hct 36.0 L MCV MCH RDW Plt Count Neut % (Auto) Lymph % (Auto) Lymph # (Auto) VBG Lactic Acid POC Sodium 121 L Sodium POC Potassium 2.3 L* Potassium POC Chloride 78 L Chloride Carbon Dioxide POC Total CO2 31.0 H POC BUN 69 H BUN Creatinine POC Creatinine 2.8 H Glucose POC Glucose 270 H Hemoglobin A1c POC WB Ioniz Calcium 1.13 L Alkaline Phosphatase Procalcitonin Urine Appearance Urine Protein Urine Glucose (UA) Urine Occult Blood Ur Leukocyte Esterase Urine RBC Urine WBC Meds: Medications Acetaminophen (Acetaminophen 325 Mg Tablet) 650 mg PO Q6HP PRN; Protocol PRN Reason: Per Pain Protocol/Fever > 101 Hydrocodone Bitart/Acetaminophen (Hydrocodone/Apap 7.5/325mg Tablet) 2 tab PO DAILYP PRN PRN Reason: Pain Acyclovir (Acyclovir 400 Mg Tablet) 400 mg PO BID [facility]; Protocol Albuterol/Ipratropium (Ipratropium/Albuterol 3 Ml Ampul.Neb) 3 ml NEB Q4HRT PRN PRN Reason: Wheezing Ceftriaxone Sodium (Ceftriaxone 1 Gm Vial) 1 gm IV Q24H [facility] Last Admin: 10/04/22 08:53 Dose: 1 gm Dextrose (Dextrose 50% 50 Ml Vial) 0 ml IV UD PRN PRN Reason: Per Sliding Scale Diagnostic Test (Pha) (Accu-Chek 1 Each Strip) 1 each FS ACHS [facility] Last Admin: 10/04/22 11:44 Dose: 1 each Dicyclomine HCl (Dicyclomine 20 Mg Tablet) 10 mg PO TIDP PRN PRN Reason: BOWEL PAIN Docusate Sodium (Docusate Sodium 100 Mg Capsule) 100 mg PO BID [facility] Last Admin: 10/04/22 08:04 Dose: 100 mg Glucose (Dextrose 31 Gm Oral.Susp) 15 gm PO PRN PRN PRN Reason: Hypoglycemia Sodium Chloride (Sodium Chloride 0.9%) 1,000 mls @ 75 mls/hr IV .[id number] [facility] Last Admin: 10/03/22 23:00 Dose: 75 mls/hr Potassium Chloride 40 meq/ (Dextrose) 520 mls @ 130 mls/hr IV ONCE ONE Stop: 10/04/22 13:03 Last Admin: 10/04/22 10:31 Dose: 130 mls/hr Insulin Human Lispro (Insulin Lispro 1 Unit/0.01 Ml Unit) 0 unit SQ ACHS [facility]; Protocol Last Admin: 10/04/22 11:45 Dose: 3 units Morphine Sulfate (Morphine 4 Mg/Ml Vial) 4 mg IV Q4HP PRN; Protocol PRN Reason: Per Pain Protocol Last Admin: 10/04/22 07:27 Dose: 1 mg Ondansetron HCl (Ondansetron 4 Mg/2 Ml Vial) 4 mg IV Q6HP PRN PRN Reason: Nausea And Vomiting Oxybutynin Chloride (Oxybutynin Chloride 5 Mg Tab.Xl.24h) 10 mg PO QDAY [facility] Empagliflozin [ Jardiance] 10 Mg Tablet 1 dose PO QDAY [facility] Sildenafil (Pulm. Hypertension) 20 Mg Tablet 1 dose PO TID DEJUAN Potassium Chloride (Potassium Chloride 20 Meq Tablet) 20 meq PO BIDCC [facility] Last Admin: 10/04/22 08:05 Dose: 20 meq Senna (Sennosides 1 Tablet) 2 tab PO HS [facility] Last Admin: 10/04/22 04:14 Dose: Not Given Sodium Chloride (0.9 % Sodium Chloride 10 Ml Syringe) 10 ml IV Q8 [facility] Last Admin: 10/04/22 05:29 Dose: Not Given Tramadol HCl (Tramadol 50 Mg Tablet) 50 mg PO Q8HP PRN PRN Reason: Pain Trazodone HCl (Trazodone Hcl 50 Mg Tablet) 25 mg PO HSP PRN PRN Reason: Insomnia A/P Assessment and plan (1) Type 2 diabetes mellitus: Status: Chronic (2) BPH (benign prostatic hyperplasia): Status: Chronic (3) S/P TURP (status post transurethral resection of prostate): Status: Acute (4) Hypokalemia: Status: Acute (5) Hyponatremia: Status: Acute (6) Obstructive nephropathy: Status: Acute (7) UTI (urinary tract infection): Status: Acute (8) Hypochromic microcytic anemia: Status: Acute Narrative A/P Narrative: Assessment and Plans: 1. Acute kidney injury secondary to obstructive nephropathy: Inpatient med surg Keep Jacob catheter in place CT abdomen pelvis w/o showed large amount of clots in the bladder Avoid nephrotoxic agents s/p IV fluid bolus given in the ED, to be followed by NS@75cc/hr Serial BMP to trend kidney functions 2. Hyponatremia: s/p IV fluid bolus given in the ED, to be followed by NS@75cc/hr BMP q6hr to trend serum sodium level Goal of correction 8-10 point over the first 24 hours to avoid overcorrection and associated [employer] consequences such as Central Pontine Myelinolysis 3. Hypokalemia: K rider 40mEq IV once now, then KCL 20mEq PO BID BMP q6hr to trend serum potassium level Also check serum Mg level and replace if needed 4. T2DM: HgA1c 7.0 Jardiance Insulin Lispro SSI AC HS Accu Check AC HS Hypoglycemia protocol Diabetic diet 5. h/o BPH s/p TURP: See #1 6. Urinary tract infection: Serial lactic acid Procalcitonin level Blood culture, no growth to date Urine culture: enterococcus species cbc w/ auto diff in the morning to trend WBC s/p IV fluid bolus given in the ED, to be followed by NS@75cc/hr Rocephin GI ppx: not currently indicated DVT ppx: SCDs Code status: Full Prognosis: guarded Disposition: inpatient med surg tele Time Spent With Patient Time: Total time spent is greater than 50% in coordination of care (as documented) at patient's floor/unit and/or counseling patient: Subsequent: Total time with patient: 35 - 49 minutes QUALITY VTE Deep Vein Thrombosis/Pulmonary Embolism Present on Admission: No
[2022-10-04 13:49] LABS: Blood Urea Nitrogen 52 mg/dL (8-23); Calcium 9.1 mg/dL (8.6-10.4); Carbon Dioxide 33 mmol/L (22-30); Chloride 85 mmol/L (96-108); Glomerular Filtration Rate 62; Glucose 205 mg/dL (70-105)
[2022-10-04] MEDS: HYDROCODONE/APAP 7.5/325MG TABLET PO PRN (16:00)
[2022-10-04] MEDS: 0.9 % SODIUM CHLORIDE 1,000 ML IV SCH (17:31)
[2022-10-04 19:07] LABS: Blood Urea Nitrogen 47 mg/dL (8-23); Calcium 9.1 mg/dL (8.6-10.4); Carbon Dioxide 35 mmol/L (22-30); Chloride 85 mmol/L (96-108); Glomerular Filtration Rate 62; Glucose 146 mg/dL (70-105)
[2022-10-04] MEDS: ACYCLOVIR 400 MG TABLET PO SCH (21:11)
[2022-10-04] MEDS: traMADol 50 MG TABLET PO PRN (21:12)
[2022-10-05 01:52] LABS: Blood Urea Nitrogen 40 mg/dL (8-23); Calcium 8.5 mg/dL (8.6-10.4); Carbon Dioxide 33 mmol/L (22-30); Chloride 91 mmol/L (96-108); Glomerular Filtration Rate 92; Glucose 106 mg/dL (70-105)
[2022-10-05] MEDS: morphine 4 MG/ML VIAL IV PRN ×4 (04:00→16:40)
[2022-10-05] MEDS: 0.9 % SODIUM CHLORIDE 1,000 ML IV SCH (04:12)
[2022-10-05] MEDS: traMADol 50 MG TABLET PO PRN (04:37)
[2022-10-05] MEDS: 0.9 % SODIUM CHLORIDE 10 ML SYRINGE IV SCH ×3 (04:43→21:44)
[2022-10-05] MEDS: POTASSIUM CHLORIDE 20 MEQ TABLET PO SCH ×2 (07:19→17:54)
[2022-10-05] MEDS: INSULIN LISPRO 1 UNIT/0.01 ML UNIT SQ SCH ×4 (07:22→21:43)
[2022-10-05] MEDS: OXYBUTYNIN CHLORIDE 5 MG TAB.XL.24H PO SCH (08:14)
[2022-10-05] MEDS: cefTRIAXone 1 GM VIAL IV SCH (08:14)
[2022-10-05] MEDS: AMBRISENTAN 10 MG PO SCH ×2 (08:14→08:22)
[2022-10-05] MEDS: ACYCLOVIR 400 MG TABLET PO SCH ×2 (08:14→21:41)
[2022-10-05] MEDS: DOCUSATE SODIUM 100 MG CAPSULE PO SCH ×2 (08:14→21:43)
[2022-10-05 08:31] LABS: Basophils # (Auto) 0.02 K/mcL (0.00-0.30); Basophils % (Auto) 0.7 % (0.0-2.0); Eosinophils # (Auto) 0.21 K/mcL (0.00-0.70); Hematocrit 34.6 % (40.1-51.0); Hemoglobin 10.8 g/dL (13.7-17.5); Lymphocytes # (Auto) 0.93 K/mcL (1.50-4.80); Lymphocytes % (Auto) 31.2 % (15.5-49.0); Mean Cell Volume 78.3 fL (80.0-100.0); Mean Corpuscular HGB Conc 31.2 g/dL (31.0-36.0); Mean Platelet Volume 10.8 fL (8.8-12.5); Monocytes # (Auto) 0.21 K/mcL (0.10-0.90); Neutrophils % (Auto) 53.8 % (38.0-78.0); Platelet Count 106 K/mcL (140-440); RBC 4.42 M/mcL (4.63-6.08); Red Cell Distribution Width 14.8 % (11.5-14.5)
[2022-10-05 08:56] LABS: ALT/SGPT 13 U/L (<40); AST/SGOT 18 U/L (<40); Albumin 3.5 gm/dL (3.2-5.2); Albumin/Globulin Ratio 1.3 (1.0-2.3); Alkaline Phosphatase 111 U/L (39-117); Bilirubin,Total 0.4 mg/dL (0.1-1.0); Blood Urea Nitrogen 31 mg/dL (8-23); Calcium 8.5 mg/dL (8.6-10.4); Carbon Dioxide 32 mmol/L (22-30); Chloride 90 mmol/L (96-108); Globulin 2.7 gm/dL (2.2-3.7); Glomerular Filtration Rate 97; Glucose 121 mg/dL (70-105)
[2022-10-05] MEDS ORDERED: POLYETHYLENE GLYCOL 3350 17 GM PACKET PO PRN (10:59)
[2022-10-05] MEDS ORDERED: MAGNESIUM HYDROXIDE 30 ML ORAL.SUSP PO PRN (10:59)
[2022-10-05] MEDS: LACTULOSE 20 GM/30 ML ORAL.SOL PO PRN ×2 (11:05→17:54)
[2022-10-05] MEDS: HYDROCODONE/APAP 7.5/325MG TABLET PO PRN ×2 (11:05→21:41)
--- NOTE | 2022-10-05 11:32 | Internal Med Progress Note ---
SUBJECTIVE Subjective Patient information: Note initiated : 10/05/22 at 11:26 am Service Date, if different from initiated Date: [] Patient: Armen Edmonds a 67 y/o M admitted on 10/03/22 for catheter flush. Chief Complaint: [] Interval history: Mr. Edmonds is a 67 year old M history of type 2 diabetes mellitus, CAD, BPH status post TURP by urologist Dr. Box a week ago on September 24, 2022, presenting with abdominal pain, hematuria, oligouria since his procedure. The abdominal/suprapubic abdominal pain was severe. He would only pee but since the procedures. Yesterday he called Dr. Box about his symptoms and was prompted to came to our ED for further evaluations. A bladder scan performed in the ED showing over 600 cc of fluid in his bladder so a Jacob catheter was inserted. Bloody urine was drained but patient had minimal urine output since then. Currently patient denies having any more abdominal pain. He denies having chest pain or palpitations. He denies any shortness of breath. He denies any muscle pain, spasm, or muscle weakness. He denies having confusion or lethargy. He denies having any GI upset such as nausea or vomiting. Labs significant for hyponatremia and hypokalemia with serum sodium and potassium level 121 and 2.3, respectively. Serum creatinine level 2.8. Blood glucose 270. Urine culture collected from October 02 day of ED presentation showing growth of Enterococcus species. Admission request is called for acute kidney injury, hyponatremia, hyperkalemia, and urinary tract infections. 10/04: Patient had 500 cc bloody urine output overnight in and and out of 400 cc bloody urine output approximately 3 hour since the start of the morning shift. Serum sodium improved from 1 -1 27 while serum potassium deteriorated from 2.3-1.9. Serum creatinine level went down from 2.8-1.6. Urine culture grew Enterococcus species, blood culture no growth to date. CT of the abdomen pelvis showing clots in the bladder, likely blood clots. Patient is feeling good and denies any abdominal pain. K rider 40 M EQ IV once, in addition to p.o. potassium supplement. Continue IV fluid with normal saline at 75 cc/h. BMP every 6. We will keep the Jacob catheter in place for the time being. We will continue Rocephin for Enterococcus urinary tract infections. 10/05: Hemoglobin 10.8 today, up from 10.3 yesterday. Serum sodium and potassium 131 and 2.4, respectively. Urine culture growing Enterococcus species, blood culture no growth today. 600 cc urine output, red, since the start of the mo rning shift. Patient is also complaining of constipations and penile irritations. Increased potassium chloride from 20-40 M EQ p.o. twice daily for better potassium replacement. Serum magnesium level normal at 2.1. Saline lock the patient. Continue Rocephin for urinary tract infections. Keep the Jacob catheter in place, and will likely to discharge patient with Jacob catheter. Patient have a follow-up appointment with Dr. Box on 10/11/2022. Constitutional Vitals: Vital Signs Temp Pulse Resp BP Pulse Ox O2 Del Method O2 Flow Rate 36.6 C 76 16 130/80 97 Room Air 2 10/05/22 07:41 10/05/22 07:41 10/05/22 07:41 10/05/22 07:41 10/05/22 07:41 10/05/22 07:41 10/04/22 23:44 Period Temp Pulse Resp BP Sys/Kaur Pulse Ox O2 Del Method O2 Flow Rate Last 24 Hr 36.0 C-36.8 C 67-78 16-18 111-132/59-80 93-99 Nasal Cannula- Room Air 2 Intake and Output 10/04/22 10/05/22 10/05/22 19:59 03:59 11:59 Intake Total 2960 660 2561 Output Total 1700 1200 1450 Balance 1260 -540 1111 Weight 71.668 kg 74.435 kg Intake & Output: Intake & Output 10/04/22 10/05/22 10/05/22 19:59 03:59 11:59 Intake Total 2960 660 2561 Output Total 1700 1200 1450 Balance 1260 -540 1111 Weight 71.668 kg 74.435 kg Intake: IV 1520 801 Sodium Chloride 0.9% 1,000 ml @ 1000 801 75 mls/hr IV .[id number] [facility] Rx#: [id number] Potassium Chloride 40 Meq In 520 Dextrose 5% in Water 500 ml @ 130 mls/hr IV ONCE ONE Rx#: [id number] Oral [id number] Output: Urine Catheter Amount 1700 1200 1450 3-way Urethral 225 600 Other: Meal Dinner Breakfast Percent of Meal Consumed 100% 100% Feeding Ability Independent Independent Urine Appearance Clear Hematuria Hematuria 3-way Urethral Hematuria Hematuria Urine Color Dark Amanda Medium Red Dark Red Medium [place] 3-way Urethral Dark Red Dark Red Urine Odor Normal Normal Normal 3-way Urethral Normal Additional comments: Jacob catheter in place with red urine OBJ DATA Labs 10/05/22 06:00 10/05/22 06:00 Labs: Abnormal Lab Results 10/05/22 10/05/22 10/05/22 06:00 06:00 00:56 WBC 3.0 L RBC 4.42 L Hgb 10.8 L Hct 34.6 L POC Hct MCV 78.3 L MCH 24.4 L RDW 14.8 H Plt Count 106 L Neut % (Auto) Lymph % (Auto) Lymph # (Auto) 0.93 L Absolute Neutrophils 1.60 L VBG Lactic Acid POC Sodium Sodium 130 L 131 L POC Potassium Potassium 2.5 L* 2.4 L* POC Chloride Chloride 90 L 91 L Carbon Dioxide 32 H 33 H POC Total CO2 Anion Gap 7.0 L POC BUN BUN 31 H 40 H Creatinine POC Creatinine Glucose 121 H 106 H POC Glucose Hemoglobin A1c Calcium 8.5 L 8.5 L POC WB Ioniz Calcium Alkaline Phosphatase Procalcitonin Urine Appearance Urine Protein Urine Glucose (UA) Urine Occult Blood Ur Leukocyte Esterase Urine RBC Urine WBC 10/04/22 10/04/22 10/04/22 17:55 12:07 07:45 WBC RBC Hgb Hct POC Hct MCV MCH RDW Plt Count Neut % (Auto) Lymph % (Auto) Lymph # (Auto) Absolute Neutrophils VBG Lactic Acid POC Sodium Sodium 127 L 127 L POC Potassium Potassium 2.8 L* 2.5 L* POC Chloride Chloride 85 L 85 L Carbon Dioxide 35 H 33 H POC Total CO2 Anion Gap 7.0 L POC BUN BUN 47 H 52 H Creatinine POC Creatinine Glucose 146 H 205 H POC Glucose Hemoglobin A1c Calcium POC WB Ioniz Calcium Alkaline Phosphatase Procalcitonin Urine Appearance Hazy A Urine Protein 100 A Urine Glucose (UA) 50 A Urine Occult Blood Ur Leukocyte Esterase 75 A Urine RBC > 182 H Urine WBC 73 H 10/04/22 10/04/22 10/04/22 06:01 03:18 03:18 WBC RBC 4.18 L Hgb 10.3 L Hct 31.6 L POC Hct MCV 75.6 L MCH 24.6 L RDW 14.7 H Plt Count 108 L Neut % (Auto) Lymph % (Auto) Lymph # (Auto) 0.85 L Absolute Neutrophils VBG Lactic Acid POC Sodium Sodium 127 L 126 L POC Potassium Potassium 1.9 L* 2.3 L* POC Chloride Chloride 84 L 83 L Carbon Dioxide 33 H 34 H POC Total CO2 Anion Gap POC BUN BUN 63 H 66 H Creatinine 1.6 H 1.8 H POC Creatinine Glucose 120 H 166 H POC Glucose Hemoglobin A1c 7.0 H Calcium POC WB Ioniz Calcium Alkaline Phosphatase Procalcitonin Urine Appearance Urine Protein Urine Glucose (UA) Urine Occult Blood Ur Leukocyte Esterase Urine RBC Urine WBC 10/03/22 10/03/22 10/03/22 23:45 19:46 19:46 WBC RBC Hgb Hct POC Hct MCV MCH RDW Plt Count Neut % (Auto) Lymph % (Auto) Lymph # (Auto) Absolute Neutrophils VBG Lactic Acid 2.1 H POC Sodium Sodium POC Potassium Potassium POC Chloride Chloride Carbon Dioxide POC Total CO2 Anion Gap POC BUN BUN Creatinine POC Creatinine Glucose POC Glucose Hemoglobin A1c Calcium POC WB Ioniz Calcium Alkaline Phosphatase Procalcitonin 78.33 H Urine Appearance Urine Protein 100 A Urine Glucose (UA) 250 A Urine Occult Blood Large A Ur Leukocyte Esterase Trace A Urine RBC > 182 H Urine WBC 12 H 10/03/22 10/03/22 10/03/22 17:00 17:00 16:49 WBC RBC Hgb 11.4 L Hct 34.7 L POC Hct 36.0 L MCV 74.1 L MCH 24.4 L RDW 14.7 H Plt Count 130 L Neut % (Auto) 84.4 H Lymph % (Auto) 9.6 L Lymph # (Auto) 0.73 L Absolute Neutrophils VBG Lactic Acid POC Sodium 121 L Sodium POC Potassium 2.3 L* Potassium POC Chloride 78 L Chloride Carbon Dioxide POC Total CO2 31.0 H Anion Gap POC BUN 69 H BUN Creatinine POC Creatinine 2.8 H Glucose POC Glucose 270 H Hemoglobin A1c Calcium POC WB Ioniz Calcium 1.13 L Alkaline Phosphatase 150 H Procalcitonin Urine Appearance Urine Protein Urine Glucose (UA) Urine Occult Blood Ur Leukocyte Esterase Urine RBC Urine WBC Meds: Medications Acetaminophen (Acetaminophen 325 Mg Tablet) 650 mg PO Q6HP PRN; Protocol PRN Reason: Per Pain Protocol/Fever > 101 Hydrocodone Bitart/Acetaminophen (Hydrocodone/Apap 7.5/325mg Tablet) 2 tab PO DAILYP PRN PRN Reason: Pain Last Admin: 10/05/22 11:05 Dose: 2 tab Acyclovir (Acyclovir 400 Mg Tablet) 400 mg PO BID [facility]; Protocol Last Admin: 10/05/22 08:14 Dose: 400 mg Albuterol/Ipratropium (Ipratropium/Albuterol 3 Ml Ampul.Neb) 3 ml NEB Q4HRT PRN PRN Reason: Wheezing Ceftriaxone Sodium (Ceftriaxone 1 Gm Vial) 1 gm IV Q24H [facility] Last Admin: 10/05/22 08:14 Dose: 1 gm Dextrose (Dextrose 50% 50 Ml Vial) 0 ml IV UD PRN PRN Reason: Per Sliding Scale Diagnostic Test (Pha) (Accu-Chek 1 Each Strip) 1 each FS [facility] Last Admin: 10/05/22 11:07 Dose: 1 each Dicyclomine HCl (Dicyclomine 20 Mg Tablet) 10 mg PO TIDP PRN PRN Reason: BOWEL PAIN Docusate Sodium (Docusate Sodium 100 Mg Capsule) 100 mg PO BID [facility] Last Admin: 10/05/22 08:14 Dose: 100 mg Glucose (Dextrose 31 Gm Oral.Susp) 15 gm PO PRN PRN PRN Reason: Hypoglycemia Insulin Human Lispro (Insulin Lispro 1 Unit/0.01 Ml Unit) 0 unit SQ [facility]; Protocol Last Admin: 10/05/22 11:11 Dose: 2 units Lactulose (Lactulose 20 Gm/30 Ml Oral.Karen) 10 gm PO DAILYP PRN PRN Reason: Constipation Last Admin: 10/05/22 11:05 Dose: 10 gm Magnesium Hydroxide (Magnesium Hydroxide 30 Ml Oral.Susp) 30 ml PO BIDP PRN PRN Reason: Constipation Morphine Sulfate (Morphine 4 Mg/Ml Vial) 4 mg IV Q4HP PRN; Protocol PRN Reason: Per Pain Protocol Last Admin: 10/05/22 09:07 Dose: 4 mg Ondansetron HCl (Ondansetron 4 Mg/2 Ml Vial) 4 mg IV Q6HP PRN PRN Reason: Nausea And Vomiting Oxybutynin Chloride (Oxybutynin Chloride 5 Mg Tab.Xl.24h) 10 mg PO QDAY [facility] Last Admin: 10/05/22 08:14 Dose: 10 mg Empagliflozin [ Jardiance] 10 Mg Tablet 1 dose PO QDAY [facility] Last Admin: 10/05/22 08:14 Dose: Not Given Ambrisentan 10 Mg (Tablet) 1 dose PO QDAY [facility] Last Admin: 10/05/22 08:22 Dose: 1 dose Polyethylene Glycol (Polyethylene Glycol 3350 17 Gm Packet) 17 gm PO DAILYP PRN PRN Reason: Constipation Potassium Chloride (Potassium Chloride 20 Meq Tablet) 40 meq PO BIDCC [facility] Senna (Sennosides 1 Tablet) 2 tab PO HS [facility] Last Admin: 10/04/22 21:12 Dose: 2 tab Sodium Chloride (0.9 % Sodium Chloride 10 Ml Syringe) 10 ml IV Q8 [facility] Last Admin: 10/05/22 04:43 Dose: Not Given Tramadol HCl (Tramadol 50 Mg Tablet) 50 mg PO Q8HP PRN PRN Reason: Pain Last Admin: 10/05/22 04:37 Dose: 50 mg Trazodone HCl (Trazodone Hcl 50 Mg Tablet) 25 mg PO HSP PRN PRN Reason: Insomnia Last Admin: 10/04/22 23:30 Dose: 25 mg A/P Assessment and plan (1) Type 2 diabetes mellitus: Status: Chronic (2) BPH (benign prostatic hyperplasia): Status: Chronic (3) S/P TURP (status post transurethral resection of prostate): Status: Acute (4) Hypokalemia: Status: Acute (5) Hyponatremia: Status: Acute (6) Obstructive nephropathy: Status: Acute (7) UTI (urinary tract infection): Status: Acute (8) Hypochromic microcytic anemia: Status: Acute (9) Constipation: Status: Acute Narrative A/P Narrative: Assessment and Plans: 1. Acute kidney injury secondary to obstructive nephropathy: Inpatient med surg Keep Jacob catheter in place, will discharge with Jacob catheter. Patient has an upcoming appointment with Dr. Box urologist on 10/11/22 CT abdomen pelvis w/o showed large amount of clots in the bladder Avoid nephrotoxic agents Saline lock Serial BMP to trend kidney functions 2. Hyponatremia: Improving, today serum sodium level 131, up from 121 at time of admission Saline lock Daily CMP trend serum sodium level 3. Hypokalemia: KCL 40mEq PO BID Daily CMP trend serum potassium level Also check serum Mg level and replace if needed 4. T2DM: HgA1c 7.0 Jardiance Insulin Lispro SSI AC HS Accu Check AC HS Hypoglycemia protocol Diabetic diet 5. h/o BPH s/p TURP: See #1 6. Urinary tract infection: Serial lactic acid Procalcitonin level Blood culture, no growth to date Urine culture: enterococcus species cbc w/ auto diff in the morning to trend WBC Saline lock Rocephin 7. Constipation: Colace Senna Milk of magnesia Miralax Lactulose GI ppx: not currently indicated DVT ppx: SCDs Code status: Full Prognosis: guarded Disposition: inpatient med surg tele Time Spent With Patient Time: Total time spent is greater than 50% in coordination of care (as documented) at patient's floor/unit and/or counseling patient: Subsequent: Total time with patient: 35 - 49 minutes QUALITY VTE Deep Vein Thrombosis/Pulmonary Embolism Present on Admission: No
[2022-10-05] MEDS ORDERED: LIDOCAINE 2% URO-JET 10 ML JEL.PF.APP UR ONE (16:00)
[2022-10-05] MEDS ORDERED: LORazepam 1 MG TABLET PO ONE (16:00)
[2022-10-05] MEDS: SENNOSIDES 1 TABLET PO SCH (21:43)
[2022-10-06] MEDS: traMADol 50 MG TABLET PO PRN (02:03)
[2022-10-06] MEDS: 0.9 % SODIUM CHLORIDE 10 ML SYRINGE IV SCH ×3 (06:09→21:08)
[2022-10-06 07:19] LABS: Basophils # (Auto) 0.02 K/mcL (0.00-0.30); Basophils % (Auto) 0.6 % (0.0-2.0); Eosinophils # (Auto) 0.22 K/mcL (0.00-0.70); Eosinophils % (Auto) 6.3 % (0.0-7.0); Hemoglobin 10.3 g/dL (13.7-17.5); Lymphocytes % (Auto) 28.6 % (15.5-49.0); Mean Cell Volume 79.1 fL (80.0-100.0); Mean Corpuscular HGB Conc 31.2 g/dL (31.0-36.0); Monocytes # (Auto) 0.24 K/mcL (0.10-0.90); Monocytes % (Auto) 6.9 % (1.0-12.0); Neutrophils % (Auto) 57.3 % (38.0-78.0); Platelet Count 117 K/mcL (140-440); RBC 4.17 M/mcL (4.63-6.08); Red Cell Distribution Width 14.7 % (11.5-14.5); WBC 3.5 K/mcL (4.5-11.0)
[2022-10-06 08:00] LABS: ALT/SGPT 22 U/L (<40); AST/SGOT 24 U/L (<40); Albumin 3.4 gm/dL (3.2-5.2); Albumin/Globulin Ratio 1.3 (1.0-2.3); Alkaline Phosphatase 133 U/L (39-117); Bilirubin,Total 0.3 mg/dL (0.1-1.0); Blood Urea Nitrogen 18 mg/dL (8-23); Calcium 8.4 mg/dL (8.6-10.4); Carbon Dioxide 30 mmol/L (22-30); Chloride 94 mmol/L (96-108); Globulin 2.6 gm/dL (2.2-3.7); Glomerular Filtration Rate 97; Glucose 130 mg/dL (70-105)
[2022-10-06] MEDS: POTASSIUM CHLORIDE 20 MEQ TABLET PO SCH ×2 (08:40→17:20)
[2022-10-06] MEDS: DOCUSATE SODIUM 100 MG CAPSULE PO SCH ×2 (08:40→21:10)
[2022-10-06] MEDS: OXYBUTYNIN CHLORIDE 5 MG TAB.XL.24H PO SCH (08:40)
[2022-10-06] MEDS: cefTRIAXone 1 GM VIAL IV SCH (08:40)
[2022-10-06] MEDS: ACYCLOVIR 400 MG TABLET PO SCH ×2 (08:40→21:07)
[2022-10-06] MEDS: INSULIN LISPRO 1 UNIT/0.01 ML UNIT SQ SCH ×4 (09:55→21:09)
[2022-10-06] MEDS: morphine 4 MG/ML VIAL IV PRN ×2 (10:12→15:57)
[2022-10-06] MEDS ORDERED: LIDOCAINE JEL 2% 1 TUBE 5ML TOPICAL ONE (10:14)
[2022-10-06] MEDS: AMBRISENTAN 10 MG PO SCH (10:18)
--- NOTE | 2022-10-06 10:22 | Internal Med Progress Note ---
SUBJECTIVE Subjective Patient information: Note initiated : 10/06/22 at 10:18 am Service Date, if different from initiated Date: [] Patient: Armen Edmonds a 67 y/o M admitted on 10/03/22 for catheter flush. Chief Complaint: [] Interval history: Mr. Edmonds is a 67 year old M history of type 2 diabetes mellitus, CAD, BPH status post TURP by urologist Dr. Box a week ago on September 24, 2022, presenting with abdominal pain, hematuria, oligouria since his procedure. The abdominal/suprapubic abdominal pain was severe. He would only pee but since the procedures. Yesterday he called Dr. Box about his symptoms and was prompted to came to our ED for further evaluations. A bladder scan performed in the ED showing over 600 cc of fluid in his bladder so a Jacob catheter was inserted. Bloody urine was drained but patient had minimal urine output since then. Currently patient denies having any more abdominal pain. He denies having chest pain or palpitations. He denies any shortness of breath. He denies any muscle pain, spasm, or muscle weakness. He denies having confusion or lethargy. He denies having any GI upset such as nausea or vomiting. Labs significant for hyponatremia and hypokalemia with serum sodium and potassium level 121 and 2.3, respectively. Serum creatinine level 2.8. Blood glucose 270. Urine culture collected from October 02 day of ED presentation showing growth of Enterococcus species. Admission request is called for acute kidney injury, hyponatremia, hyperkalemia, and urinary tract infections. 10/04: Patient had 500 cc bloody urine output overnight in and and out of 400 cc bloody urine output approximately 3 hour since the start of the morning shift. Serum sodium improved from 1 -1 27 while serum potassium deteriorated from 2.3-1.9. Serum creatinine level went down from 2.8-1.6. Urine culture grew Enterococcus species, blood culture no growth to date. CT of the abdomen pelvis showing clots in the bladder, likely blood clots. Patient is feeling good and denies any abdominal pain. K rider 40 M EQ IV once, in addition to p.o. potassium supplement. Continue IV fluid with normal saline at 75 cc/h. BMP every 6. We will keep the Jacob catheter in place for the time being. We will continue Rocephin for Enterococcus urinary tract infections. 10/05: Hemoglobin 10.8 today, up from 10.3 yesterday. Serum sodium and potassium 131 and 2.4, respectively. Urine culture growing Enterococcus species, blood culture no growth today. 600 cc urine output, red, since the start of the mo rning shift. Patient is also complaining of constipations and penile irritations. Increased potassium chloride from 20-40 M EQ p.o. twice daily for better potassium replacement. Serum magnesium level normal at 2.1. Saline lock the patient. Continue Rocephin for urinary tract infections. Keep the Jacob catheter in place, and will likely to discharge patient with Jacob catheter. Patient have a follow-up appointment with Dr. Box on 10/11/2022. 10/06: Hemoglobin 10.3 today. Serum Cr, sodium, and potassium 133, 3.4, and 0.7, respectively. Patient's received manual Jacob catheter irrigations every 4 hours and he is continue put out red urine output. Patient denies having any lower abdominal pain. He is coming of the penile irrigations every time he received the manual irrigations. Urine culture growing Enterococcus species, blood culture no growth today. Continue potassium chloride oral replacement. Continue Rocephin for urinary tract infections. Continue manual irrigations of the the Jacob catheter every [address] Box's instructions. Constitutional Vitals: Vital Signs Temp Pulse Resp BP Pulse Ox O2 Del Method O2 Flow Rate 36.8 C 82 16 117/60 92 Room Air 2 10/06/22 08:44 10/06/22 08:44 10/06/22 08:44 10/06/22 08:44 10/06/22 08:44 10/06/22 08:44 10/04/22 23:44 Period Temp Pulse Resp BP Sys/Kaur Pulse Ox O2 Del Method O2 Flow Rate Last 24 Hr 36.3 C-36.8 C 66-86 16-18 108-125/60-76 92-98 Room Air-Room Air Intake and Output 10/05/22 10/06/22 10/06/22 19:59 03:59 11:59 Intake Total 480 800 Output Total 300 960 Balance 480 -300 -160 Weight 71.668 kg Intake & Output: Intake & Output 10/05/22 10/06/22 10/06/22 19:59 03:59 11:59 Intake Total 480 800 Output Total 300 960 Balance 480 -300 -160 Weight 71.668 kg Intake: Oral 480 800 Output: Urine Catheter Amount 300 960 3-way Urethral 300 480 Other: Meal Dinner Percent of Meal Consumed 75% Feeding Ability Independent Urine Appearance Small Blood Clots Small Blood Clots 3-way Urethral Hematuria Small Blood Clots Small Blood Clots Urine Color Medium Red Medium Red 3-way Urethral Light Red Medium Red Medium Red Dark [place] Urine Odor Normal Normal 3-way Urethral Normal Normal Stool Size Moderate Moderate Small Stool Color Brown Brown Brown Stool Consistency Formed Loose Liquid # Bowel Movements 1 1 1 Head Head exam: Present atraumatic and normal inspection Eye Eye exam: Present normal appearance ENT ENT exam: Present mucous membranes moist, normal exam and normal external ear exam Neck Neck exam: Present normal inspection Respiratory Respiratory exam: Present normal respiratory exam Cardiovascular Cardiovascular exam: Present normal rate and rhythm GI/Abdominal GI/Abdominal exam: Present normal bowel sounds Additional comments: Jacob catheter in place with red urine in the bag Back Exam Back exam: Present normal inspection Neurological Exam Neurological exam: Present alert and oriented X3 Skin Skin exam: Present intact and warm OBJ DATA Labs 10/06/22 05:19 10/06/22 05:19 Labs: Abnormal Lab Results 10/06/22 10/06/22 10/05/22 05:19 05:19 06:00 WBC 3.5 L RBC 4.17 L Hgb 10.3 L Hct 33.0 L POC Hct MCV 79.1 L MCH 24.7 L RDW 14.7 H Plt Count 117 L Neut % (Auto) Lymph % (Auto) Lymph # (Auto) 1.00 L Absolute Neutrophils VBG Lactic Acid POC Sodium Sodium 130 L POC Potassium Potassium 2.5 L* POC Chloride Chloride 94 L 90 L Carbon Dioxide 32 H POC Total CO2 Anion Gap POC BUN BUN 31 H Creatinine POC Creatinine Glucose 130 H 121 H POC Glucose Hemoglobin A1c Calcium 8.4 L 8.5 L POC WB Ioniz Calcium Alkaline Phosphatase 133 H Procalcitonin Urine Appearance Urine Protein Urine Glucose (UA) Urine Occult Blood Ur Leukocyte Esterase Urine RBC Urine WBC 10/05/22 10/05/22 10/04/22 06:00 00:56 17:55 WBC 3.0 L RBC 4.42 L Hgb 10.8 L Hct 34.6 L POC Hct MCV 78.3 L MCH 24.4 L RDW 14.8 H Plt Count 106 L Neut % (Auto) Lymph % (Auto) Lymph # (Auto) 0.93 L Absolute Neutrophils 1.60 L VBG Lactic Acid POC Sodium Sodium 131 L 127 L POC Potassium Potassium 2.4 L* 2.8 L* POC Chloride Chloride 91 L 85 L Carbon Dioxide 33 H 35 H POC Total CO2 Anion Gap 7.0 L 7.0 L POC BUN BUN 40 H 47 H Creatinine POC Creatinine Glucose 106 H 146 H POC Glucose Hemoglobin A1c Calcium 8.5 L POC WB Ioniz Calcium Alkaline Phosphatase Procalcitonin Urine Appearance Urine Protein Urine Glucose (UA) Urine Occult Blood Ur Leukocyte Esterase Urine RBC Urine WBC 10/04/22 10/04/22 10/04/22 12:07 07:45 06:01 WBC RBC Hgb Hct POC Hct MCV MCH RDW Plt Count Neut % (Auto) Lymph % (Auto) Lymph # (Auto) Absolute Neutrophils VBG Lactic Acid POC Sodium Sodium 127 L 127 L POC Potassium Potassium 2.5 L* 1.9 L* POC Chloride Chloride 85 L 84 L Carbon Dioxide 33 H 33 H POC Total CO2 Anion Gap POC BUN BUN 52 H 63 H Creatinine 1.6 H POC Creatinine Glucose 205 H 120 H POC Glucose Hemoglobin A1c Calcium POC WB Ioniz Calcium Alkaline Phosphatase Procalcitonin Urine Appearance Hazy A Urine Protein 100 A Urine Glucose (UA) 50 A Urine Occult Blood Ur Leukocyte Esterase 75 A Urine RBC > 182 H Urine WBC 73 H 10/04/22 10/04/22 10/03/22 03:18 03:18 23:45 WBC RBC 4.18 L Hgb 10.3 L Hct 31.6 L POC Hct MCV 75.6 L MCH 24.6 L RDW 14.7 H Plt Count 108 L Neut % (Auto) Lymph % (Auto) Lymph # (Auto) 0.85 L Absolute Neutrophils VBG Lactic Acid 2.1 H POC Sodium Sodium 126 L POC Potassium Potassium 2.3 L* POC Chloride Chloride 83 L Carbon Dioxide 34 H POC Total CO2 Anion Gap POC BUN BUN 66 H Creatinine 1.8 H POC Creatinine Glucose 166 H POC Glucose Hemoglobin A1c 7.0 H Calcium POC WB Ioniz Calcium Alkaline Phosphatase Procalcitonin Urine Appearance Urine Protein Urine Glucose (UA) Urine Occult Blood Ur Leukocyte Esterase Urine RBC Urine WBC 10/03/22 10/03/22 10/03/22 19:46 19:46 17:00 WBC RBC Hgb Hct POC Hct MCV MCH RDW Plt Count Neut % (Auto) Lymph % (Auto) Lymph # (Auto) Absolute Neutrophils VBG Lactic Acid POC Sodium Sodium POC Potassium Potassium POC Chloride Chloride Carbon Dioxide POC Total CO2 Anion Gap POC BUN BUN Creatinine POC Creatinine Glucose POC Glucose Hemoglobin A1c Calcium POC WB Ioniz Calcium Alkaline Phosphatase 150 H Procalcitonin 78.33 H Urine Appearance Urine Protein 100 A Urine Glucose (UA) 250 A Urine Occult Blood Large A Ur Leukocyte Esterase Trace A Urine RBC > 182 H Urine WBC 12 H 10/03/22 10/03/22 17:00 16:49 WBC RBC Hgb 11.4 L Hct 34.7 L POC Hct 36.0 L MCV 74.1 L MCH 24.4 L RDW 14.7 H Plt Count 130 L Neut % (Auto) 84.4 H Lymph % (Auto) 9.6 L Lymph # (Auto) 0.73 L Absolute Neutrophils VBG Lactic Acid POC Sodium 121 L Sodium POC Potassium 2.3 L* Potassium POC Chloride 78 L Chloride Carbon Dioxide POC Total CO2 31.0 H Anion Gap POC BUN 69 H BUN Creatinine POC Creatinine 2.8 H Glucose POC Glucose 270 H Hemoglobin A1c Calcium POC WB Ioniz Calcium 1.13 L Alkaline Phosphatase Procalcitonin Urine Appearance Urine Protein Urine Glucose (UA) Urine Occult Blood Ur Leukocyte Esterase Urine RBC Urine WBC Meds: Medications Acetaminophen (Acetaminophen 325 Mg Tablet) 650 mg PO Q6HP PRN; Protocol PRN Reason: Per Pain Protocol/Fever > 101 Last Admin: 10/06/22 06:29 Dose: 650 mg Hydrocodone Bitart/Acetaminophen (Hydrocodone/Apap 7.5/325mg Tablet) 2 tab PO DAILYP PRN PRN Reason: Pain Last Admin: 10/05/22 21:41 Dose: 2 tab Acyclovir (Acyclovir 400 Mg Tablet) 400 mg PO BID [facility]; Protocol Last Admin: 10/06/22 08:40 Dose: 400 mg Albuterol/Ipratropium (Ipratropium/Albuterol 3 Ml Ampul.Neb) 3 ml NEB Q4HRT PRN PRN Reason: Wheezing Ceftriaxone Sodium (Ceftriaxone 1 Gm Vial) 1 gm IV Q24H DEJUAN Last Admin: 10/06/22 08:40 Dose: 1 gm Dextrose (Dextrose 50% 50 Ml Vial) 0 ml IV UD PRN PRN Reason: Per Sliding Scale Diagnostic Test (Pha) (Accu-Chek 1 Each Strip) 1 each FS [facility] Last Admin: 10/06/22 09:55 Dose: Not Given Dicyclomine HCl (Dicyclomine 20 Mg Tablet) 10 mg PO TIDP PRN PRN Reason: BOWEL PAIN Docusate Sodium (Docusate Sodium 100 Mg Capsule) 100 mg PO BID [facility] Last Admin: 10/06/22 08:40 Dose: 100 mg Glucose (Dextrose 31 Gm Oral.Susp) 15 gm PO PRN PRN PRN Reason: Hypoglycemia Insulin Human Lispro (Insulin Lispro 1 Unit/0.01 Ml Unit) 0 unit SQ [facility]; Protocol Last Admin: 10/06/22 09:55 Dose: Not Given Lactulose (Lactulose 20 Gm/30 Ml Oral.Karen) 10 gm PO DAILYP PRN PRN Reason: Constipation Last Admin: 10/05/22 17:54 Dose: 10 gm Magnesium Hydroxide (Magnesium Hydroxide 30 Ml Oral.Susp) 30 ml PO BIDP PRN PRN Reason: Constipation Last Admin: 10/05/22 12:56 Dose: 30 ml Morphine Sulfate (Morphine 4 Mg/Ml Vial) 4 mg IV Q4HP PRN; Protocol PRN Reason: Per Pain Protocol Last Admin: 10/06/22 10:12 Dose: 4 mg Ondansetron HCl (Ondansetron 4 Mg/2 Ml Vial) 4 mg IV Q6HP PRN PRN Reason: Nausea And Vomiting Oxybutynin Chloride (Oxybutynin Chloride 5 Mg Tab.Xl.24h) 10 mg PO QDAY [facility] Last Admin: 10/06/22 08:40 Dose: 10 mg Empagliflozin [ Jardiance] 10 Mg Tablet 1 dose PO QDAY [facility] Last Admin: 10/05/22 08:14 Dose: Not Given Ambrisentan 10 Mg (Tablet) 1 dose PO QDAY [facility] Last Admin: 10/05/22 08:22 Dose: 1 dose Polyethylene Glycol (Polyethylene Glycol 3350 17 Gm Packet) 17 gm PO DAILYP PRN PRN Reason: Constipation Potassium Chloride (Potassium Chloride 20 Meq Tablet) 40 meq PO BIDCC [facility] Last Admin: 10/06/22 08:40 Dose: 40 meq Senna (Sennosides 1 Tablet) 2 tab PO [facility] Last Admin: 10/05/22 21:43 Dose: Not Given Sodium Chloride (0.9 % Sodium Chloride 10 Ml Syringe) 10 ml IV Q8 DEJUAN Last Admin: 10/06/22 06:09 Dose: 10 ml Tramadol HCl (Tramadol 50 Mg Tablet) 50 mg PO Q8HP PRN PRN Reason: Pain Last Admin: 10/06/22 02:03 Dose: 50 mg Trazodone HCl (Trazodone Hcl 50 Mg Tablet) 25 mg PO HSP PRN PRN Reason: Insomnia Last Admin: 10/04/22 23:30 Dose: 25 mg A/P Assessment and plan (1) Type 2 diabetes mellitus: Status: Chronic (2) BPH (benign prostatic hyperplasia): Status: Chronic (3) S/P TURP (status post transurethral resection of prostate): Status: Acute (4) Hypokalemia: Status: Acute (5) Hyponatremia: Status: Acute (6) Obstructive nephropathy: Status: Acute (7) UTI (urinary tract infection): Status: Acute (8) Hypochromic microcytic anemia: Status: Acute (9) Constipation: Status: Acute Narrative A/P Narrative: Assessment and Plans: 1. Acute kidney injury secondary to obstructive nephropathy: Inpatient med surg Keep Jacob catheter in place, will discharge with Jacob catheter. Manual irrigation of the Jacob catheter as per Dr. Box instruction. Patient has an upcoming appointment with Dr. Box urologist on 10/11/22 CT abdomen pelvis w/o showed large amount of clots in the bladder Avoid nephrotoxic agents Saline lock Serial BMP to trend kidney functions 2. Hyponatremia: Improving, today serum sodium level 131, up from 121 at time of admission Saline lock Daily CMP trend serum sodium level 3. Hypokalemia: KCL 40mEq PO BID Daily CMP trend serum potassium level Also check serum Mg level and replace if needed 4. T2DM: HgA1c 7.0 Jardiance Insulin Lispro SSI AC HS Accu Check AC HS Hypoglycemia protocol Diabetic diet 5. h/o BPH s/p TURP: See #1 6. Urinary tract infection: Serial lactic acid Procalcitonin level Blood culture, no growth to date Urine culture: enterococcus species cbc w/ auto diff in the morning to trend WBC Saline lock Rocephin 7. Constipation: Colace Senna Milk of magnesia Miralax Lactulose GI ppx: not currently indicated DVT ppx: SCDs Code status: Full Prognosis: guarded Disposition: inpatient med surg tele Time Spent With Patient Time: Total time spent is greater than 50% in coordination of care (as documented) at patient's floor/unit and/or counseling patient: Subsequent: Total time with patient: 35 - 49 minutes QUALITY VTE Deep Vein Thrombosis/Pulmonary Embolism Present on Admission: No
[2022-10-06] MEDS ORDERED: LIDOCAINE 2% URO-JET 10 ML JEL.PF.APP UR ONE (10:45)
--- NOTE | 2022-10-06 12:18 | Urology Progress Note ---
SUBJECTIVE Subjective Patient information: Note initiated : 10/06/22 at 12:14 pm Service Date, if different from initiated Date: [] Patient: Armen Edmonds 67 y/o M admitted on 10/03/22 for catheter flush. Chief Complaint: [] Principal diagnosis: Gross hematuria status post transurethral resection of prostate. Low K+ Constitutional Vitals: Vital Signs Temp Pulse Resp BP Pulse Ox O2 Del Method O2 Flow Rate 98.2 F 82 16 117/60 92 Room Air 2 10/06/22 08:44 10/06/22 08:44 10/06/22 08:44 10/06/22 08:44 10/06/22 08:44 10/06/22 08:44 10/04/22 23:44 Period Temp Pulse Resp BP Sys/Kaur Pulse Ox O2 Del Method O2 Flow Rate Last 24 Hr 97.4 F-98.2 F 74-86 16-17 108-123/60-71 92-98 Room Air-Room Air Intake and Output 10/06/22 10/06/22 10/06/22 03:59 11:59 19:59 Intake Total 800 Output Total 300 1510 Balance -300 -710 Weight 71.668 kg Intake & Output: Intake & Output 10/06/22 10/06/22 10/06/22 03:59 11:59 19:59 Intake Total 800 Output Total 300 1510 Balance -300 -710 Weight 71.668 kg Intake: Oral 800 Output: Urine Catheter Amount 300 1510 3-way Urethral 300 1030 Other: Urine Appearance Small Blood Clots Small Blood Clots 3-way Urethral Small Blood Clots Small Blood Clots Urine Color Medium Red Medium Red 3-way Urethral Medium Red Dark Red Urine Odor Normal Normal 3-way Urethral Normal Normal Stool Size Moderate Small Stool Color Brown Brown Stool Consistency Loose Liquid # Bowel Movements 1 1 General appearance: cooperative and no acute distress GI/Abdominal GI/Abdominal exam: Present soft; Absent distended or tenderness Additional comments: Jacob catheter in place draining light pink urine. Additional findings Additional findings: Labs reviewed A/P Assessment and plan (1) S/P TURP (status post transurethral resection of prostate): Status: Acute (2) Hypokalemia: Assessment and plan: Resolved Status: Acute (3) Hematuria: Assessment and plan: Improved Status: Acute Plan Patient approximately 10 days status post transurethral section of the prostate with persistent gross hematuria. Patient's urine has dramatically cleared with hand irrigation. I would recommend continuing the hand irrigation overnight. If it remains is clear tomorrow we will plan to discontinue his Jacob catheter. Time Spent With Patient Time: Total time spent is greater than 50% in coordination of care (as documented) at patient's floor/unit and/or counseling patient:
[2022-10-06] MEDS: HYDROCODONE/APAP 7.5/325MG TABLET PO PRN (21:07)
[2022-10-06] MEDS: SENNOSIDES 1 TABLET PO SCH (21:10)
[2022-10-07] MEDS: traMADol 50 MG TABLET PO PRN (04:01)
[2022-10-07] MEDS: 0.9 % SODIUM CHLORIDE 10 ML SYRINGE IV SCH ×2 (05:40→16:13)
--- NOTE | 2022-10-07 07:33 | Urology Progress Note ---
SUBJECTIVE Subjective Patient information: Note initiated : 10/07/22 at 7:28 am Service Date, if different from initiated Date: [] Patient: Armen Edmonds 67 y/o M admitted on 10/03/22 for catheter flush. Chief Complaint: [] Principal diagnosis: Gross hematuria status post TURP. Low K+, UTI Interval history: No acute episodes overnight. Patient slept well. Constitutional Vitals: Vital Signs Temp Pulse Resp BP Pulse Ox O2 Del Method O2 Flow Rate 98.5 F 78 16 111/66 95 Room Air 2 10/07/22 03:24 10/07/22 03:24 10/07/22 03:24 10/07/22 03:24 10/07/22 03:24 10/07/22 03:24 10/04/22 23:44 Period Temp Pulse Resp BP Sys/Kaur Pulse Ox O2 Del Method O2 Flow Rate Last 24 Hr 97.5 F-98.5 F 74-85 16-17 110-134/60-78 92-96 Room Air-Room Air Intake and Output 10/06/22 10/07/22 10/07/22 19:59 03:59 11:59 Intake Total 1000 Output Total 750 1600 275 Balance -750 -600 -275 Weight 73.074 kg Intake & Output: Intake & Output 10/06/22 10/07/22 10/07/22 19:59 03:59 11:59 Intake Total 1000 Output Total 750 1600 275 Balance -750 -600 -275 Weight 73.074 kg Intake: Oral 1000 Output: Urine Catheter Amount 750 1600 275 Other: Urine Appearance Hematuria Small Blood Clots 3-way Urethral Small Blood Clots Urine Color Medium Red Medium Red Brown 3-way Urethral Medium Red Urine Odor Normal Normal 3-way Urethral Normal Stool Size Small Stool Color Brown Stool Consistency Soft General appearance: average body habitus and no acute distress GI/Abdominal GI/Abdominal exam: Present soft; Absent distended or tenderness Additional comments: Urine very light pink, no clots with hand irrigation Additional findings Additional findings: Urine culture from 10/04/2022 Enterococcus species A/P Assessment and plan (1) Hematuria: Assessment and plan: Patient's urine is clearing. Status: Acute (2) S/P TURP (status post transurethral resection of prostate): Assessment and plan: With the patient's urine clearing. I had irrigated his catheter this mornin and DC the Jacob catheter. I would suggest watching his urine output this morning. I will check back with him later today Status: Acute (3) Bladder outflow obstruction: Status: Acute (4) UTI (urinary tract infection): Assessment and plan: Urine culture from 10/04/2022 Enterococcus species, I will plan to discuss antibiotic choice with the hospitalist service. Status: Acute Time Spent With Patient Time: Total time spent is greater than 50% in coordination of care (as documented) at patient's floor/unit and/or counseling patient:
[2022-10-07] MEDS: INSULIN LISPRO 1 UNIT/0.01 ML UNIT SQ SCH ×2 (07:45→11:22)
[2022-10-07] MEDS: cefTRIAXone 1 GM VIAL IV SCH (08:04)
[2022-10-07] MEDS: AMBRISENTAN 10 MG PO SCH (08:05)
[2022-10-07] MEDS: POTASSIUM CHLORIDE 20 MEQ TABLET PO SCH (08:05)
[2022-10-07] MEDS: ACYCLOVIR 400 MG TABLET PO SCH (08:05)
[2022-10-07] MEDS: DOCUSATE SODIUM 100 MG CAPSULE PO SCH (08:05)
--- NOTE | 2022-10-07 13:23 | Discharge Summary ---
Discharge Provider Provider IMPORTANT FOLLOW-UP INFORMATION FOR PCP: Patient information: Note initiated : 10/07/22 at 1:17 pm Service Date, if different from initiated Date: [] Patient: Armen Edmonds 67 y/o M admitted on 10/03/22 for catheter flush. Chief Complaint: [] Date of admission: 10/03/22 22:46 Discharge date: 10/07/22 Primary care physician: Richie Cunningham Admitting clinician: Neo Ryder Attending physician on admission: Neo Ryder Consults: 10/03/22 Consult to Physician [CONS] Stat Comment: Consulting Provider: Neo Ryder Reason For Exam: Physician to Consult 10/05/22 17:14 Consult to Physician [CONS] Routine Comment: Consulting Provider: Walker Box Reason For Exam: Physician to Consult Attending physician on discharge: keli toribio md Discharging clinician: keli toribio md COURSE Hospital Course Hospital course: Pt admitted for hematuria and urinary obstruction s/p TURP. He also had AFSHIN. Jacob was placed, renal function normalized, hematuria resolved. Jacob removed by Urology, patient urinated adequately and was deemed appropriate for d/c by Urology. Urine grew sepinoza sensitive enterococcus. Ciprofloxacin 500 mg BID x 7 days prescribed at D/C. Discharge diagnosis: urinary obstruction Secondary discharge diagnosis: AFSHIN Reason for admission: urinary obstruction Time Spent with Patient Time attestation: Total time spent providing and/or coordinating discharge services: Time spent: Less than 30 minutes EXAM Constitutional Vitals: Temp Pulse Resp BP Pulse Ox O2 Del Method O2 Flow Rate 97.4 F 74 18 122/73 95 Room Air 2 10/07/22 12:00 10/07/22 12:00 10/07/22 08:00 10/07/22 12:00 10/07/22 08:00 10/07/22 08:00 10/04/22 23:44 General appearance: average body habitus Head Head exam: Present atraumatic Respiratory Respiratory exam: Present normal respiratory exam Cardiovascular Cardiovascular exam: Present normal rate and rhythm GI/Abdominal GI/Abdominal exam: Present normal bowel sounds and soft Neurological Exam Neurological exam: Present CN II-XII intact and oriented X3 Discharge Data Data Completed and Pending Labs on day of discharge: Preliminary micro results at discharge 10/03/22 23:50 Blood Culture - Preliminary Blood 10/03/22 23:45 Blood Culture - Preliminary Blood Discharge Plan Patient/Caregiver Discharge Instructions Activity: increase activity as tolerated Diet: Regular Diet Instructions: Acute Kidney Injury (DC) Prescriptions: New ciprofloxacin HCl 500 mg tablet 500 mg PO BID 7 Days Qty: 14 0RF Continued hydrocodone-acetaminophen 7.5-325 mg tablet 2 tab PO DAILY potassium chloride 20 mEq tablet extended release 20 meq PO QDAY Rx Instructions: ONLY TAKES 20 MEQ tramadol 50 mg tablet 50 mg PO Q8H PRN (Reason: pain) Qty: 10 0RF metolazone 2.5 mg tablet 2.5 mg PO QDAY furosemide 40 mg tablet 40 mg PO BID dicyclomine 10 mg capsule 10 mg PO TID PRN (Reason: Pain) sildenafil (pulm.hypertension) 20 mg tablet 20 mg PO TID acyclovir 400 mg tablet 400 mg PO BID ambrisentan 10 mg tablet 10 mg PO QDAY Jardiance 10 mg tablet 10 mg PO QDAY oxybutynin chloride 10 mg tablet extended release 24hr 10 mg PO QDAY dexamethasone 4 mg tablet 20 mg PO .Q Month Rx Instructions: ONLY TAKES WHEN HE TAKES HIS CANCER TREATMENT Prescription drug monitoring program results: PDMP not reviewed Follow Up Plan Follow up with: Walker Box MD [Physician] - (follow up with Urology as instructed by Urology) Richie Cunningham MD [Primary Care Provider] - Patient Disposition: Home, Self-Care Discharge Orders: Discharge Order (Routine); Ordered 10/07/22 Ordered By: Keli BOYLE VTE Deep Vein Thrombosis/Pulmonary Embolism Present on Admission: No
== END 2022-10-07 15:05 | disposition home or self-care (01) | DRG 920 ==
LOC: ED 16:13 → MEDSUR 22:46
PROVIDERS: ADMIT Internal Medicine; ATTEND Internal Medicine